=== PATIENT | female | born 1965 | race Caucasian/White ===

== ENCOUNTER 2016-09-05 14:51 | Inpatient (IN) | payer OTHER ==
--- NOTE | 2016-09-05 15:17 | PROVIDER DOCUMENTATION ---
HPI-General Adult - General Source: patient, family Unable to obtain history due to:: altered - History of Present Illness -Gen Adult Nature of Presenting Problems: 50 y/o F presented to the ER after experiencing fever of 104 as per . Also this morning he noticed that her speech is slurred so he called EMS. Patient is a poor historian and having difficulty remembering words. Her confirmed that this all happened today and that yesterday she was completely normal. Patient has a long history of cachexia and a recent history of DVT for which she is receiving a blood thinner. Patient has a PICC line in her left arm that she doesn't know what is it for, neither the . Her medication list does not include any medication that is taken through IV route. <Ayala Marrero - Last Filed: 09/05/16 18:41> - General Source: family () - History of Present Illness -Gen Adult Nature of Presenting Problems: 50 YOWF PRESENTS TO ED WITH HER ,PT'S STATES SHE WAS NORMAL AT 07 :00 THIS MORNING WHEN HE LEFT FOR WORK. PT'S STATES WHEN HE CAME HOME AT LUNCH, PT HAD A FEVER OF 104. PT WAS SEEN 1 WEEK AGO HERE AND DX WITH DVT BOTH LOWER EXTREMITIES. Location of Pain/Injury: reports: lower extremity Pain Radiation: reports: no radiation Quality of Pain: reports: aching Severity: reports: moderate Onset/Duration: reports: 1-3 hours ago Timing: reports: still present Context/Activities at Onset: reports: light activity Modifying Factors: improves with: nothing Similar Symptoms Previously?: No Recently seen or treated by another doctor?: No <Jam Castillo - Last Filed: 09/07/16 01:39> - General Chief Complaint: Fever Stated Complaint: FEVER Time Seen by Provider: 09/05/16 15:00 Allergies/Adverse Reactions: Patient Allergies Allergy/AdvReac Type Severity Reaction Status Date / Time No Known Allergies Allergy Verified 09/05/16 15:46 Home Medications: Home Medication List Medication Instructions Recorded Confirmed Last Taken Type Alprazolam [Xanax] 2 mg PO HS 01/15/16 09/05/16 08/15/16 History Esomeprazole Magnesium [Nexium] 40 mg PO BID #60 capsule. 01/16/16 09/05/16 Rx Fluconazole [Diflucan] 100 mg PO DAILY #22 tablet 01/16/16 09/05/16 08/16/16 Rx Hydrocodone Bit/Acetaminophen 1 each PO PRN PRN 02/20/16 09/05/16 Unknown History [Hydrocodon-Acetaminoph 7.5-325] Bupropion [Wellbutrin] 300 mg PO DAILY 08/16/16 09/05/16 08/16/16 History Escitalopram Oxalate [Lexapro] 20 mg PO DAILY 08/16/16 09/05/16 08/16/16 History Quetiapine Fumarate [Seroquel] 150 mg PO HS 08/16/16 09/05/16 08/15/16 History Fondaparinux [Arixtra] 7.5 mg SUBQ BID #60 inj 08/30/16 09/05/16 Unknown Rx Levothyroxine [Synthroid] 200 microgm PO ACB #60 tablet 08/31/16 09/05/16 Unknown Rx Promethazine [Phenergan] 25 mg PO Q6H PRN PRN #10 tablet 08/31/16 09/05/16 Unknown Rx Review of Systems - Adult - REVIEW OF SYSTEMS - ADULT Constitutional: reports: chills, fever Eyes: reports: no symptoms reported Ears, Nose, Mouth & Throat: reports: no symptoms reported, other (NG tube in place from last visit for nutrition) Cardiovascular: reports: no symptoms reported Respiratory: reports: no symptoms reported Gastrointestinal: reports: nausea Genitourinary: reports: no symptoms reported Musculoskeletal: reports: frequent leg cramps Neurological: reports: no symptoms reported Psychiatric: reports: no symptoms reported Endocrine: reports: no symptoms reported Hematologic/Lymphatic: reports: blood clots Allergic/Immunologic: reports: no symptoms reported <Ayala Marrero - Last Filed: 09/05/16 18:41> - REVIEW OF SYSTEMS - ADULT Constitutional: denies: chills, fever Cardiovascular: denies: chest pain, palpitations, syncope Respiratory: denies: cough, shortness of breath, wheezing Gastrointestinal: denies: abdominal pain, diarrhea, nausea, vomiting Musculoskeletal: reports: other (BILATERAL LEG PAINS). denies: back pain, neck pain Neurological: denies: dizziness/vertigo, headache/migraines, syncope <Jam Castillo - Last Filed: 09/07/16 01:39> Past History - Adult - PAST MEDICAL HISTORY-ADULT Major Childhood Illnesses: reports: denies history Cardiovascular: reports: blood clots (Lower Extremities DVT 2/2 to Factor V leidg deficiency ) Gastrointestinal: reports: obstruction Obstetrical/Gynecological: reports: denies history Genitourinary: reports: denies history Musculoskeletal: reports: denies history Neurological: reports: denies history Endocrine/Immune: reports: denies history - PRIOR SURGERIES/PROCEDURES Surgical/Procedure History: reports: gastric bypass - SOCIAL HISTORY Smoking: denies <Ayala Marrero - Last Filed: 09/05/16 18:41> - PAST MEDICAL HISTORY-ADULT Review of Records: reports: Nursing Assessment Review, Medications Reviewed Cardiovascular: reports: other (Factor V Leiden) Gastrointestinal: reports: GERD, ulcer - IMMUNIZATION STATUS Childhood Immunizations: See Nurse Assessment Flu Vaccine: See Nurse Assessment - FAMILY HISTORY Family History: reviewed, not pertinent - SOCIAL HISTORY Smoking: quit less than 1 year Substance Use: denies Alcohol Use Frequency: never Living Situation: family <Jam Castillo - Last Filed: 09/07/16 01:39> Physical Exam-General - CONSTITUTIONAL General Appearance: mild distress, cachetic, slow to respond - EYES Eyes: PERRL/EOMI - HEAD, EARS, NOSE, MOUTH & THROAT HENMT: normocephalic/atraumatic - NECK Neck: supple - RESPIRATORY Respiratory: lungs clear - CARDIOVASCULAR Cardiovascular: regular rate, rhythm - CHEST (BREASTS) Chest/Breast: deferred - GASTROINTESTINAL (ABDOMEN) Abdominal Exam: non tender, soft - GENITOURINARY Female Genitalia/Pelvic Exam: bimanual exam normal Rectal Exam: deferred - MUSCULOSKELETAL Back Exam: no CVA tenderness Extremity: calf tenderness - NEUROLOGIC Neurologic: aphasia. negative: facial droop (AOx2) <Ayala Marrero - Last Filed: 09/05/16 18:41> - CONSTITUTIONAL General Appearance: alert, mild distress - EYES Eyes: PERRL/EOMI, pink conjunctivae - HEAD, EARS, NOSE, MOUTH & THROAT HENMT: normocephalic/atraumatic, moist mucous membranes - NECK Neck: non-tender, full range of motion, supple - RESPIRATORY Respiratory: chest non-tender, lungs clear, normal breath sounds - CARDIOVASCULAR Cardiovascular: normal peripheral pulses, regular rate, rhythm - GASTROINTESTINAL (ABDOMEN) Abdominal Exam: normal bowel sounds, non tender, soft - LYMPHATIC Lymphatic: no adenopathy - MUSCULOSKELETAL Back Exam: normal inspection, no CVA tenderness, no vertebral tenderness Extremity: normal range of motion, non-tender - SKIN Integumentary: normal color, normal turgor, warm/dry - NEUROLOGIC Neurologic: grossly normal <Jam Castillo - Last Filed: 09/07/16 01:39> Progress - PLAN OF CARE/RESULTS Progress/Plan/Lab Results: Laboratory Tests 09/05/16 09/05/16 09/05/16 15:09 15:09 15:09 WBC 1.85 L RBC 3.15 L Hgb 9.6 L Hct 30.1 L MCV 95.6 MCH 30.5 MCHC 31.9 L RDW Std Deviation 16.2 H Plt Count 168 MPV 11.0 H Immature Gran % (Auto) 0.0 Neut % (Auto) 86.5 H Lymph % (Auto) 9.7 L [place] % (Auto) 1.1 L Eos % (Auto) 2.2 Baso % (Auto) 0.5 Immature Gran # (Auto) 0.00 Neut # (Auto) 1.60 Lymph # (Auto) 0.18 L [place] # (Auto) 0.02 L Eos # (Auto) 0.04 Baso # (Auto) 0.01 Segmented Neutrophils 75 Band Neutrophils 10 H Lymphocytes 15 L Polychromasia OCCASIONAL PT INR PTT (Actin FS) Sodium 133 L Potassium 3.5 Chloride 102 Carbon Dioxide 21 L Anion Gap 10 BUN 13 Creatinine 0.5 Estimated GFR/1.73 m2 > 60 BUN/Creatinine Ratio 26 Glucose 115 H Calculated Osmolality 267 Calcium 7.6 L Total Bilirubin Direct Bilirubin AST ALT Alkaline Phosphatase Total Protein Albumin Globulin Albumin/Globulin Ratio Plasma Lactate 1.6 Urine Source Urine Color Urine Turbidity Urine pH Ur Specific [place] Urine Protein Ur Glucose (Stick) Ur Ketones (Stick) Urine Blood Urine Nitrite Urine Bilirubin Urobilinogen Dipstick Urine Leukocytes Urine WBC (Auto) Urine RBC (Auto) U Epithel Cells (Auto) Urine Bacteria (Auto) Urine Opiates Screen Ur Oxycodone Screen Ur Methadone, Qual Ur Barbiturates Screen Ur Phencyclidine Scrn Ur Amphetamines Screen U Benzodiazepines Scrn Urine Cocaine Screen U Cannabinoids Screen 09/05/16 09/05/16 09/05/16 15:09 15:09 15:09 WBC RBC Hgb Hct MCV MCH MCHC RDW Std Deviation Plt Count MPV Immature Gran % (Auto) Neut % (Auto) Lymph % (Auto) [place] % (Auto) Eos % (Auto) Baso % (Auto) Immature Gran # (Auto) Neut # (Auto) Lymph # (Auto) [place] # (Auto) Eos # (Auto) Baso # (Auto) Segmented Neutrophils Band Neutrophils Lymphocytes Polychromasia PT 13.1 H INR 1.23 PTT (Actin FS) 30.6 Sodium Potassium Chloride Carbon Dioxide Anion Gap BUN Creatinine Estimated GFR/1.73 m2 BUN/Creatinine Ratio Glucose Calculated Osmolality Calcium Total Bilirubin 0.61 Direct Bilirubin 0.40 H AST 46 H ALT 26 Alkaline Phosphatase 85 Total Protein 4.6 L Albumin 2.3 L Globulin 2.3 Albumin/Globulin Ratio 1.0 Plasma Lactate Urine Source Urine Color Urine Turbidity Urine pH Ur Specific [place] Urine Protein Ur Glucose (Stick) Ur Ketones (Stick) Urine Blood Urine Nitrite Urine Bilirubin Urobilinogen Dipstick Urine Leukocytes Urine WBC (Auto) Urine RBC (Auto) U Epithel Cells (Auto) Urine Bacteria (Auto) Urine Opiates Screen Ur Oxycodone Screen Ur Methadone, Qual Ur Barbiturates Screen Ur Phencyclidine Scrn Ur Amphetamines Screen U Benzodiazepines Scrn Urine Cocaine Screen U Cannabinoids Screen 09/05/16 09/05/16 15:25 15:25 WBC RBC Hgb Hct MCV MCH MCHC RDW Std Deviation Plt Count MPV Immature Gran % (Auto) Neut % (Auto) Lymph % (Auto) [place] % (Auto) Eos % (Auto) Baso % (Auto) Immature Gran # (Auto) Neut # (Auto) Lymph # (Auto) [place] # (Auto) Eos # (Auto) Baso # (Auto) Segmented Neutrophils Band Neutrophils Lymphocytes Polychromasia PT INR PTT (Actin FS) Sodium Potassium Chloride Carbon Dioxide Anion Gap BUN Creatinine Estimated GFR/1.73 m2 BUN/Creatinine Ratio Glucose Calculated Osmolality Calcium Total Bilirubin Direct Bilirubin AST ALT Alkaline Phosphatase Total Protein Albumin Globulin Albumin/Globulin Ratio Plasma Lactate Urine Source CLEAN CATCH Urine Color YELLOW Urine Turbidity CLEAR Urine pH 6.5 Ur Specific [place] 1.011 Urine Protein NEGATIVE Ur Glucose (Stick) NEGATIVE Ur Ketones (Stick) NEGATIVE Urine Blood NEGATIVE Urine Nitrite NEGATIVE Urine Bilirubin NEGATIVE Urobilinogen Dipstick NORMAL Urine Leukocytes NEGATIVE Urine WBC (Auto) <10 Urine RBC (Auto) <10 U Epithel Cells (Auto) <10 Urine Bacteria (Auto) NEGATIVE Urine Opiates Screen NONE DETECTED Ur Oxycodone Screen NONE DETECTED Ur Methadone, Qual NONE DETECTED Ur Barbiturates Screen NONE DETECTED Ur Phencyclidine Scrn NONE DETECTED Ur Amphetamines Screen NONE DETECTED U Benzodiazepines Scrn PRESUMPTIVE POSITIVE A Urine Cocaine Screen NONE DETECTED U Cannabinoids Screen NONE DETECTED Orders Category Date Time Status CHEST-2 VIEWS [RAD] Stat Exams 09/05/16 15:31 Completed HEAD W/O CONTRAST [CT] Stat Exams 09/05/16 15:05 Completed BASIC METABOLIC PANEL [CHEM] Stat Lab 09/05/16 15:09 Completed BLOOD CULTURE [BLDCUL] Stat Lab 09/05/16 16:31 Results CBC WITH DIFF [HEME] Stat Lab 09/05/16 15:09 Completed INFLUENZA SCREEN A/B Stat Lab 09/05/16 15:18 Completed LACTATE, PLASMA [CHEM] Stat Lab 09/05/16 15:09 Completed LFT [HEPATIC FUNCTION] [CHEM] Stat Lab 09/05/16 15:09 Completed PROTIME WITH INR [COAG] Stat Lab 09/05/16 15:09 Completed PTT [COAG] Stat Lab 09/05/16 15:09 Completed UA [URINALYSIS] [URINALYSIS] Stat Lab 09/05/16 15:25 Completed URINE DRUG SCREEN Stat Lab 09/05/16 15:25 Completed 0.9% Sodium Chloride Inj [Ns] 1,000 ml Med 09/05/16 15:55 Discontinued IV 999 mls/hr Meropenem [Merrem] 1 gm Med 09/05/16 16:57 Discontinued 0.9% Sodium Chloride Inj [Ns] 50 ml IV NOW Vancomycin 1 gm/Ns 250 ml Med 09/05/16 16:57 Discontinued IV NOW Vital Signs - 24 hr 09/05/16 09/05/16 09/05/16 14:52 15:02 15:20 Temperature 97.7 F Pulse Rate 126 H 119 H 115 H Respiratory 20 21 18 Rate Blood Pressure 81/56 105/67 91/61 O2 Sat by Pulse 98 95 97 Oximetry 09/05/16 09/05/16 09/05/16 16:20 17:30 18:23 Temperature 101.1 F H Pulse Rate 115 H 116 H 121 H Respiratory 20 22 20 Rate Blood Pressure 91/58 96/63 89/61 O2 Sat by Pulse 99 98 99 Oximetry - XRAY 1 XRAY: Bilateral XRAY Study: Chest (possible pneumonia) - CT/MRI 1 CT Study: Head (normal) - CONSULTS/PCP/HOSPITALIST Notification #1 *Consult/PCP/Hospitalist*: Dr. Reinoso Time Discussed: 18:39 <Ayala Marrero - Last Filed: 09/05/16 18:41> - CT/MRI 1 CT Study: Head CT Results: NEGATIVE <Jam Castillo - Last Filed: 09/07/16 01:39> Departure - Departure Time of Disposition Order: 18:39 <Ayala Marrero - Last Filed: 09/05/16 18:41> - Departure Time of Disposition Order: 15:44 Certified Medical Emergency: Emergent <Jam Castillo - Last Filed: 09/07/16 01:39> - Departure DIAGNOSIS: TIA (transient ischemic attack) Qualifiers: Transient cerebral ischemia type: unspecified Qualified Code(s): G45.9 - Transient cerebral ischemic attack, unspecified Sepsis Qualifiers: Sepsis type: sepsis due to unspecified organism Qualified Code(s): A41.9 - Sepsis, unspecified organism Disposition: ADMITTED INPATIENT 09 Condition: Critical Attestation - Scribe Verification/Attestation Scribe:: Jam Castillo Acting as Scribe for:: Clara Maynard Scribe documention review:: This chart was documented by a scribe and accurately reflects the service the provider performed and the decisions made by the provider. <Jam Castillo - Last Filed: 09/07/16 01:39> Physician Attestation - Physician Attestation I, the provider, attest to the following statement:: Ayala Marrero Physician documentation Attestation:: This documentation recorded by the scribe accurately reflects the service I personally performed and the decisions made by me. <Ayala Marrero - Last Filed: 09/05/16 18:41>
--- NOTE | 2016-09-05 15:29 | Diag Imaging Result Document ---
PROCEDURE NAME: HEAD W/O CONTRAST - 09/05/[address]: COMPARISON: None. FINDINGS: The ventricles and sulci are normal in size and contour. There is no mass, hemorrhage, or evidence of acute ischemia. The bony calvaria is intact. The visualized paranasal sinuses and mastoid air cells are clear. IMPRESSION: Negative head CT.
[2016-09-05 15:53] LABS: URINE MICRO REVIEW NEEDED? NO; URINE SOURCE CLEAN CATCH
[2016-09-05 15:54] LABS: AGAP 10; BUN 13 mg/dL (8-22); CALCIUM 7.6 mg/dL (8.8-10.2); CHLORIDE 102 mmol/L (98-107); COSMO 267; POTASSIUM 3.5 mmol/L (3.5-5.1); SODIUM 133 mmol/L (136-145); TCO2 21 mmol/L (25-35)
[2016-09-05] MEDS ORDERED: NS 1,000 ML IV ONE ×3 (15:55→21:47)
[2016-09-05 16:03] LABS: BILIRUBIN URINE NEGATIVE (NEGATIVE); BLOOD URINE NEGATIVE (NEGATIVE); COLOR YELLOW; GLUCOSE URINE NEGATIVE (NEGATIVE); LEUKOCYTES URINE NEGATIVE (NEGATIVE); NITRITE URINE NEGATIVE (NEGATIVE); PH URINE 6.5; PROTEIN URINE NEGATIVE (NEGATIVE); SP GRAVITY URINE 1.011; TURBIDITY URINE CLEAR (CLEAR); UROBILINOGEN URINE NORMAL (NORMAL)
[2016-09-05 16:04] LABS: UR EPITHELIAL CELLS <10 /HPF (<10); URINE BACTERIA NEGATIVE /HPF; URINE RBC <10 /HPF (<10); URINE WBC <10 /HPF (<10)
[2016-09-05 16:07] LABS: BASO% 0.5 % (0.0-0.8); EOS# 0.04 X1000 (0.0-0.7); EOS% 2.2 % (0.0-10.0); HEMATOCRIT 30.1 % (37.0-47.0); HEMOGLOBIN 9.6 g/dL (12.0-16.0); LYMPH# 0.18 X1000 (1.2-3.4); LYMPH% 9.7 % (20.5-51.1); MANUAL DIFF NEEDED? YES; MCH 30.5 PG (27-31); MCHC 31.9 g/dL (33-37); MCV 95.6 FL (81-99); MONO# 0.02 X1000 (0.11-0.59); MONO% 1.1 % (1.7-9.3); NEUT% 86.5 % (42.2-75.2); PLT 168 X1000 (130-400); RBC 3.15 XMIL (4.2-5.4)
[2016-09-05 16:12] LABS: INR 1.23; PROTIME 13.1 Seconds (9.2-11.7)
[2016-09-05 16:18] LABS: UR AMPHETAMINES QUAL NONE DETECTED (NONE DETECT); UR BARBITUATES QUAL NONE DETECTED (NONE DETECT); UR BENZODIAZEPIN QUAL PRESUMPTIVE POSITIVE (NONE DETECT); UR CANNABINOIDS QUAL NONE DETECTED (NONE DETECT); UR COCAINE QUAL NONE DETECTED (NONE DETECT); UR METHADONE QUAL NONE DETECTED (NONE DETECT); UR OPIATES QUAL NONE DETECTED (NONE DETECT); UR OXYCODONE QUAL NONE DETECTED (NONE DETECT); UR PCP QUAL NONE DETECTED (NONE DETECT)
[2016-09-05 16:29] LABS: BANDS 10 % (0-1); LYMPHS 15 % (21-51)
[2016-09-05 16:30] LABS: POLYCHROM OCCASIONAL
--- NOTE | 2016-09-05 16:30 | Diag Imaging Result Document ---
PROCEDURE NAME: CHEST-2 VIEWS - 09/05/2016 CHEST X-RAY TWO-VIEWS: COMPARISON: 08/21/2016. FINDINGS: There is a stable feeding tube in the left upper quadrant off the bottom of the film. There is a left PICC line in good position with the catheter tip at the cavoatrial junction. There are some ill-defined bilateral lower lobe infiltrates similar to prior. Trace pleural effusions have improved. Heart size is normal. IMPRESSION: 1. Improved pleural effusions. 2. Small residual lower lobe infiltrates, nonspecific.
[2016-09-05 16:34] LABS: ALBUMIN 2.3 g/dL (3.5-5.0); DIRECT BILIRUBIN 0.4 mg/dL (0.00-0.20); TOTAL BILIRUBIN 0.61 mg/dL (0.20-1.00); TOTAL PROTEIN 4.6 g/dL (6.3-8.3)
[2016-09-05] MEDS ORDERED: VANCOMYCIN 1 GM/NS 250 ML IV ONE (16:57)
[2016-09-05] MEDS ORDERED: MERREM 1 GM in NS 50 ML IV ONE (16:57)
[2016-09-05] MEDS ORDERED: NS 500 ML IV ONE (19:27)
[2016-09-05] MEDS ORDERED: NS 500 ML ONE (19:30)
[2016-09-05] MEDS ORDERED: VANCOMYCIN IV PER PHARMACY MISC SCH (20:10)
[2016-09-05] MEDS: TYLENOL PO PRN (20:20)
[2016-09-05] MEDS: NS 1,000 ML IV SCH (20:48)
[2016-09-05] MEDS: DIFLUCAN 200 MG/NS 100 ML IV SCH (20:50)
[2016-09-05] MEDS: SODIUM CHLORIDE 0.9% INJ SCH (20:50)
[2016-09-05] MEDS: PROTONIX IV SCH (20:50)
--- NOTE | 2016-09-05 20:51 | HISTORY AND PHYSICAL ---
PRIMARY CARE PROVIDER: Dr. Lord. PRIMARY DETACKER: Digna Renteria M.D. CHIEF COMPLAINT: Fever and chills with stroke-like symptoms, confusion. HISTORY OF PRESENT ILLNESS: Ms. Rachid Alexander is a 50-year-old female with a past medical history of gastric bypass, severe protein calorie malnutrition, Factor V Leiden deficiency, recurrent DVTs and asthma who apparently was last seen normal about 06:30 by her . He went to work and called her around 12 and she did not seem to be having a normal conversation. He came home and found that she was confused, lethargic, had a fever at home of 104 prior to taking Tylenol. He states that she had slurred speech with difficulty getting words out. Generalized weakness. Body aches. On admit her NIH stroke scale was a score of 2. Head CT was negative for any acute findings. She has been on Arixtra for her DVT and there are no signs of bleeding on this head CT. Apparently she saw her primary care physician yesterday that did not make any change in her medications. It was just a routine visit for complaints of headache and feeling weak. HOSPITAL COURSE: She was afebrile on admit. Her temp was normal at 97.7 because she had taken Tylenol prior to arrival. It's now back up to 101.1 she has been tachycardic 110s-120s. Blood pressure has been below anywhere from 80s to 90s systolically. She has no complaints of shortness of breath. Her O2 saturation is good. Her white blood cell count on laboratory findings was 1.85. Kidney function looks good. It looks like she had a past record of low white count. It looks like she has been running anywhere from 1.9-2.5 this year. We will consult Hematology as she has not been seeing anybody for Hematology. Neurologically she is starting to come back around. She is able to tell me her name and where she is at. She is having a really hard time finding words at times. Given the fact that she still appears to be septic we are going to send her to ICU for at least 1 tonight and give her aggressive IV fluid hydration with antibiotic therapy. On her chest x-ray they are still showing some lower lobe infiltrates but she still has pneumonia from her last admit. Lactate is normal at 1.6 and her urinalysis is negative. So we will continue to treat her for pneumonia with sepsis. She also has severe protein calorie malnutrition that Dr. Renteria has been following her for. Jay has a Dobbhoff tube in that she has been receiving tube feeds through and we will reconsult Dr. Renteria and Nutrition consult for recommendations. PAST MEDICAL HISTORY: Asthma, severe protein calorie malnutrition, anxiety, Factor V Leiden deficiency, recurrent DVTs with recent one in the left lower extremity, hypothyroidism, gastritis, external and internal hemorrhoids, morbid obesity with multiple bariatric surgeries is as well as stricture repair. SURGICAL HISTORY: Gastric bypass with revision, stricture removal, left ACL x3, cholecystectomy, appendectomy, Cathi filter placement, and left upper arm PICC line placement. SOCIAL HISTORY: and lives with her . Has a remote history of tobacco abuse. Denies alcohol or illicit drug use. Urine drug screen was positive for benzodiazepines. FAMILY HISTORY: Follow has peripheral vascular disease and diabetes. Mother with lung cancer with metastasis to the brain. REVIEW OF SYSTEMS: A 14 review of systems were complete and all were negative except for those mentioned in above HPI. ALLERGIES: No known drug allergies. HOME MEDICATIONS: Xanax 2 mg p.o. nightly; hydrocodone/acetaminophen 7.5, 1 tab p.o. p.r.n.; Lexapro 20 mg p.o. daily; Seroquel 150 mg p.o. nightly; Wellbutrin 300 mg p.o. daily; Diflucan 100 mg p.o. daily; Nexium 40 mg p.o. twice daily; Phenergan 25 mg p.o. q.6 hours p.r.n.; Arixtra 7.5 mg subcutaneous twice daily; Synthroid 200 mcg p.o. before breakfast. LABORATORY DATA: White blood cells 1.85, hemoglobin 9, hematocrit 30, platelet count 168,000. INR 1.23, PTT 30.6, sodium 133, potassium 3.5, BUN 13, creatinine 0.5, glucose 115, calcium 7.6, total bilirubin 0.61, AST 46, ALT 26, total protein 4.6, albumin 2.3. Urinalysis negative. Urine drug screen positive for benzodiazepines. IMAGING: Chest x-ray: Improved pleural effusion with small residual lower lobe infiltrate. Head CT: Negative for any acute findings. PHYSICAL EXAMINATION: VITAL SIGNS: Temperature 101.1 degrees, heart rate 121, respiratory rate 20, blood pressure 89/61, O2 saturation 99% on room air GENERAL: Ms. Rachid Alexander is a 50-year-old female who is in no acute distress. She is very confused with some conversation and has a hard time trying to find a word. She is hypotensive with tachycardia and febrile. HEENT: Atraumatic, normocephalic. Pupils are equal, reactive but sluggish. Extraocular movements are intact. Mucous membranes are dry. NECK: No JVD or carotid bruits noted. CARDIOVASCULAR: S1, S2. Tachycardic rate and rhythm. No rubs, gallops, murmurs. PULMONARY: Clear to auscultation. Bilateral breath sounds. Decreased in the bases. No accessory muscle use or work of breathing noted. Currently on room air. GASTROINTESTINAL: Soft, nontender, nondistended. Positive bowel sounds x4. Currently with a Dobbhoff tube in place that she receives nutrition through. EXTREMITIES: No edema noted. +2 dorsalis and radial pulses. NEUROLOGIC: She is oriented to name and place only. She had a hard time finding words. She was equal in strength bilaterally. Face was symmetric. SKIN: Warm, dry, intact. ASSESSMENT AND PLAN: 1. Stroke-like symptoms. Head CT was negative. She does have a history of Factor V Leiden deficiency. Neurologically she is improving. I would recommend MRI of the brain. She apparently has metal clips from her history of gastric bypass and a Leblanc filter so we will need to check with MRI if she is compatible. Frequent neurology checks. Neurology has been consulted. Check swallow. Physical therapy. 2. Sepsis secondary to pneumonia. She is severely leukopenic, white blood cells 1.8. Heart rates in the 120s. Blood pressures 80s to low 90s. She is febrile. Lactate is normal. We will consult Hematology to follow up with her leukopenia. Start her on vancomycin and meropenem. Send her to ICU for 1 night. Blood cultures have been obtained. Urinalysis is negative. Influenza screening is negative. 3. Severe protein calorie malnutrition. She has a Dobbhoff tube. Dr. Renteria has been reconsulted to follow along with her poor nutritional status. 4. Factor V Leiden deficiency with recurrent DVTs. Currently is on Arixtra. Continue. 5. Hypothyroidism. Continue Synthroid. Recheck TSH. 6. Deep venous thrombosis prophylaxis. On Arixtra. 7. Gastrointestinal prophylaxis. Proton pump inhibitor. Dictated by RUEL Cortez for Kanu Hallman MD
[2016-09-05] MEDS ORDERED: NEO-SYNEPHRINE 50 MG in NS 250 ML IV SCH (22:00)
[2016-09-05] MEDS: XOPENEX NEB INH SCH (22:00)
[2016-09-05] MEDS: ATROVENT NEB INH SCH (22:00)
[2016-09-05] MEDS ORDERED: VANCOMYCIN 1,600 MG in NS 250 ML IV ONE (23:00)
[2016-09-05] MEDS ORDERED: VANCOMYCIN 500 MG/NS 100 ML IV ONE (23:00)
[2016-09-06] MEDS: MERREM 1 GM in NS 50 ML IV SCH ×3 (00:03→17:33)
[2016-09-06] MEDS: NS 1,000 ML IV SCH ×3 (03:35→17:34)
[2016-09-06] MEDS: ATROVENT NEB INH SCH ×4 (04:10→20:02)
[2016-09-06] MEDS: XOPENEX NEB INH SCH ×4 (04:10→20:03)
[2016-09-06 06:00] LABS: MANUAL DIFF NEEDED? NO
[2016-09-06 06:19] LABS: BASO% 0.2 % (0.0-0.8); EOS# 0.02 X1000 (0.0-0.7); EOS% 0.4 % (0.0-10.0); HEMATOCRIT 27.6 % (37.0-47.0); HEMOGLOBIN 8.8 g/dL (12.0-16.0); LYMPH# 0.91 X1000 (1.2-3.4); LYMPH% 18.5 % (20.5-51.1); MCH 30.7 PG (27-31); MCHC 31.9 g/dL (33-37); MCV 96.2 FL (81-99); MONO# 0.35 X1000 (0.11-0.59); MONO% 7.1 % (1.7-9.3); NEUT% 73.8 % (42.2-75.2); PLT 147 X1000 (130-400); RBC 2.87 XMIL (4.2-5.4)
[2016-09-06 06:58] LABS: AGAP 9; ALBUMIN 1.8 g/dL (3.5-5.0); ALKALINE PHOSPHATASE 52 U/L (32-104); BUN 11 mg/dL (8-22); CALCIUM 6.5 mg/dL (8.8-10.2); CHLORIDE 113 mmol/L (98-107); COSMO 283; GOT 38 U/L (10-30); GPT 23 U/L (10-36); POTASSIUM 3.3 mmol/L (3.5-5.1); SODIUM 143 mmol/L (136-145); TCO2 21 mmol/L (25-35); TOTAL BILIRUBIN 0.42 mg/dL (0.20-1.00); TOTAL PROTEIN 4.1 g/dL (6.3-8.3)
[2016-09-06] MEDS ORDERED: SYNTHROID PO SCH (07:00)
[2016-09-06] MEDS ORDERED: CALCIUM GLUCONATE 2 GM in NS 100 ML IV ONE (07:28)
[2016-09-06] MEDS ORDERED: NEO-SYNEPHRINE 50 MG in NS 250 ML IV SCH (07:37)
[2016-09-06] MEDS: PROTONIX IV SCH ×2 (08:13→20:13)
[2016-09-06] MEDS: SODIUM CHLORIDE 0.9% INJ SCH ×3 (08:13→20:13)
[2016-09-06] MEDS ORDERED: ARIXTRA SUBQ SCH (09:00)
[2016-09-06] MEDS: SYNTHROID IV SCH (09:36)
[2016-09-06] MEDS: TYLENOL PR ONE ×2 (09:37→09:42)
[2016-09-06] MEDS: TYLENOL PO PRN (09:48)
[2016-09-06] MEDS ORDERED: VANCOMYCIN 1,200 MG in NS 250 ML IV SCH (11:00)
[2016-09-06] MEDS: MORPHINE IV PRN ×3 (11:14→22:03)
[2016-09-06 11:39] LABS: MAGNESIUM 1.6 mg/dL (1.5-2.7); PREALBUMIN 4.5 mg/dL (20-40)
--- NOTE | 2016-09-06 12:18 | PROGRESS NOTE ---
DATE: 09/06/2016 SUBJECTIVE: Patient is feeling fine. Alert and oriented x3. Denies feeling feverish sometimes. No headache, no nausea. OBJECTIVE: Vital Signs: Temperature 98.2 degrees, heart rate 78, respiratory rate 18, blood pressure 111/78 and O2 saturation 98% on room air. General Examination: This is a chronically ill-looking and frail, 50-year-old female, lying in bed in no acute distress. HEENT: Head is normocephalic, atraumatic. Anicteric sclerae and pale conjunctivae. Mucous membranes dry. Jejunal tube feeding in place. Neck: Supple. No JVD noted. No carotid bruits. No lymphadenopathy. No thyromegaly. Cardiovascular Exam: S1, S2 heard. No murmurs, clicks gallops or rubs. Regular rate and rhythm. Respiratory Exam: Clear bilaterally to auscultation. No work of breathing or using accessory muscles. Abdomen: Soft, nontender to palpation. Nondistended. Bowel sounds present. No organomegaly. Extremities: 1+ pitting edema noted in both legs. Peripheral pulses present in both legs. Neurological Exam: Patient is alert and oriented x3. Able to move 4 extremities. Cranial nerves 2-12 grossly normal. LABORATORY DATA: White cell count 4.94, hemoglobin 8.8, hematocrit 27.6, platelets 147. BMP remarkable for calcium 6.5, potassium 3.3 and albumin 1.8. ASSESSMENT AND PLAN: 1. Sepsis secondary to pneumonia. The patient was admitted to the hospital yesterday for fever, altered mental status and apparently a stroke was suspected. Chest x-ray shows a small residual lower lobe infiltrate. Considering her high temperature, she was started on broad- spectrum antibiotics. In this case, vancomycin and meropenem. Mental status is back to normal. We will continue with same management. 2. She was started on blood pressure because the blood pressure at presentation was 70; now she is most of the time in the 90s to 100s, so considering that this is the blood pressure that she usually runs, we have to stop neosynephrine today. 3. Severe protein calorie malnutrition. This patient has a Dobbhoff tube placed. Dr. Renteria has been consulted, and we will leave to her the decision to start nutrition trial by tube, total parenteral nutrition, or any other kind of nutrition. Apparently because of suspicion for stroke, swallow evaluation has been ordered. If the swallow evaluation is fine, I think we need to start some diet on this patient. 4. Factor V Leiden deficiency with recurrent deep vein thrombosis. Currently patient is on Arixtra and will continue with the same management. 5. Hypothyroidism. Patient receiving Synthroid. Thyroid stimulating hormone was rechecked here and was normal. MTDD
--- NOTE | 2016-09-06 14:43 | CONSULTATION ---
DATE OF CONSULTATION: 09/06/2016 CONCLUSION: The patient is admitted to the hospital with an altered mental status. I think this is due to the fact that she was septic; specifically, she has a gram-negative artur bacteremia. She also on chest x-ray has bibasilar infiltrates with effusions. Therefore, I think most likely she has a gram-negative artur pneumonia, which became bacteremic. I am concerned that the patient may have an immunoglobulin deficiency as well. RECOMMENDATIONS: I agree with putting the patient on meropenem. I have discontinued Levaquin and vancomycin pending culture results. I have ordered immunoglobulin levels. DISCUSSION: The patient tells me that she was admitted to the hospital with an altered mental status. She became hypotensive. She is up in the intensive care unit. She was placed on vancomycin and meropenem, as well as pressor support. She has not had to be intubated. Two blood cultures are growing gram-negative rods, the identity of which is pending. The patient's CBC shows a white count of 4930, hemoglobin of 8.8, and platelet count of a 147,000. Creatinine is 0.3. CT scan of the head showed no acute disease. Chest x-ray showed bibasilar infiltrates and effusions. 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 OBSTETRICAL/GYNECOLOGICAL HISTORY: The patient has never been . PAST MEDICAL HISTORY/REVIEW OF SYSTEMS: Eyes and Ears: The patient states she has a decrease in her vision, but her hearing is okay. Neck: No stiffness. Respiratory: The patient is complaining of dyspnea, but she is not coughing. Cardiovascular: No chest pain or palpitations. Gastrointestinal: The patient has had bypass surgery and now has a tube down from the nose to the jejunum for feeding to her. The patient states she has been having nausea and vomiting in the past week. As mentioned above, the patient has had some vomiting. She is not having any diarrhea. She does have a nasal jejunal tube in place. Genitourinary: No flank pain or dysuria. Neurologic: No headaches or motor or sensory loss. Hematologic: The patient has factor V deficiency and as a result of this clots easily. It should be noted that the patient does have blood clots in both legs. Endocrine: The patient does have a thyroid deficiency, but she is not a diabetic PREVIOUS HOSPITALIZATIONS AND OPERATIONS: She has had ACL surgery on her knee done more than 1 time. She has had 2 gastric bypasses. She has had a cholecystectomy and a hernia repair. MEDICAL DISEASES: Positive for obesity. The patient has had 2 gastric bypass procedures. The patient also has hypothyroidism and peptic ulcer disease and factor V deficiency, which has resulted in the patient having deep venous thromboses in the legs. INFECTIOUS DISEASE HISTORY: Positive for UTI. The patient tells me that she has a history of having extensive yeast in her GI tract, for which she is on long-term fluconazole. FAMILY HISTORY: Positive for peripheral vascular disease, myocardial infarction, and cancer. SOCIAL HISTORY: The patient lives in [place]. She is . She has dogs for a pet. ALLERGIES: The patient does not have any drug allergies. HOME MEDICATIONS: Her home medications include the following: Seroquel, Phenergan, Synthroid, hydrocodone, Arixtra, fluconazole, Nexium, Lexapro, Wellbutrin, and Xanax. PHYSICAL EXAMINATION: Vital Signs: The patient's temperature is 98.2 degrees, pulse 78, respirations 18, blood pressure 111/78. General: This is a chronically ill-appearing elderly female. She is in no acute distress at this time. Head, Eyes, Ears, Nose, and Throat: The patient has a nasal jejunal tube in place. No mucosal lesions were noted in the mouth. Neck: No meningismus. Thorax: No increased AP diameter. Lungs: Clear to auscultation. Cardiovascular: The patient's heart rate was regular. I did not hear any murmurs. Abdomen: Soft and nontender. Neurologic: The patient. Neurologic: The patient is awake. She moves both sides. There is no tremor. The patient's sensory exam was normal. Extremities: The patient has a PICC in place. Thank you for the consultation.
[2016-09-06] MEDS ORDERED: CHLORASEPTIC SPRAY MT PRN (14:49)
[2016-09-06] MEDS ORDERED: CALMOSEPTINE OINTMENT TOP PRN (15:07)
--- NOTE | 2016-09-06 15:54 | CONSULTATION ---
DATE OF CONSULTATION: 09/06/2016 HISTORY OF PRESENT ILLNESS: Ms. Aziza Alexander is a young woman with question of recent altered mental state. History from the patient is that she had felt ill for a few days. She had some hard shaking chills. She remembers telephone conversation with her , and she remembers coming home and telling her preacher was present for a visit. She does not remember visiting preacher. She next remembers being in the hospital. History from attentive is that she had hard shaking chills, and he came home to check on her. She had trouble getting her words out. There was never a period of unconsciousness, altered awareness, unresponsiveness. She seems completely recovered today. She has had headache for a few days. The headache now is mostly in the back of her head, throbbing, moderately intense. There is no history of head injury. She has never had diagnosed stroke, seizure , other neurologic event. Lab showed WBC count less than 2000, calcium initially 7.6 and then 6.5. Urine drug screen was positive for benzodiazepines and negative for opiates. This is consistent with her report that she takes alprazolam every night regularly, and she has prescription for hydrocodone to use p.r.n. She has not used that in over a week, and she does not have any hydrocodone pills at home by her report. Noncontrast CT of the head was reported unremarkable. There is past history of gastric bypass followed by weight loss. She has history of DVTs. She has asthma. reports oral temperature 104 degrees at home before admission. Highest temperature recorded on the computer record here was 101.8. Caffeine intake is variable; usually 1 caffeinated soft drink per week, by her report. PHYSICAL EXAMINATION: Neurologic: On exam now, she is awake, alert, attentive , appropriate, cheerful, and oriented. Speech is not dysarthric. Language function is intact. Head and neck are unremarkable. There is no meningismus. She has full visual garcia. Extraocular movements full. Facial motility is symmetric. Gag is intact. Tongue is midline. She can hear. Shoulder shrug is equal. Strength is good in the arms and legs. She did well on finger- to-nose testing. Sensation is intact on brief testing over the limbs. I did not test her gait. Reflexes are 2+ at the right ankle, 1+ at the left ankle with poor positioning, 2+ at the knees. IMPRESSION: Transient inability to communicate. No clear history of altered awareness or unconsciousness. I think this was related to her fever and medical illness. I do not see evidence of primary central nervous system problem. For headache, she can try caffeine and acetaminophen. If that is not adequate, we can give her the hydrocodone/ acetaminophen which has helped her in the past. I do not have any urgent suggestion now. If she deteriorates neurologically, we might consider repeat brain imaging, electroencephalogram, lumbar puncture. Thanks for asking me to see Ms. Aziza Alexander. MTDD
[2016-09-06] MEDS ORDERED: PHENERGAN ONE (18:22)
[2016-09-06] MEDS: PHENERGAN IV PRN ×2 (18:24→22:04)
[2016-09-06] MEDS: DIFLUCAN 200 MG/NS 100 ML IV SCH (19:40)
[2016-09-06] MEDS: SODIUM CHLORIDE 0.9% INJ PRN (22:04)
[2016-09-07] MEDS: NS 1,000 ML IV SCH ×2 (02:14→10:08)
[2016-09-07] MEDS: MORPHINE IV PRN ×2 (02:22→08:02)
[2016-09-07] MEDS: PHENERGAN IV PRN ×4 (02:22→20:16)
[2016-09-07] MEDS: SODIUM CHLORIDE 0.9% INJ PRN ×2 (02:23→20:16)
[2016-09-07] MEDS: MERREM 1 GM in NS 50 ML IV SCH ×3 (02:29→16:12)
[2016-09-07] MEDS: ATROVENT NEB INH SCH ×3 (03:28→16:07)
[2016-09-07] MEDS: XOPENEX NEB INH SCH ×3 (03:28→16:07)
[2016-09-07] MEDS: PROTONIX IV SCH ×2 (08:01→20:14)
[2016-09-07] MEDS: ARIXTRA SUBQ SCH (08:01)
[2016-09-07] MEDS: SODIUM CHLORIDE 0.9% INJ SCH ×3 (08:01→20:17)
[2016-09-07] MEDS: SYNTHROID IV SCH (08:02)
--- NOTE | 2016-09-07 08:20 | Diag Imaging Result Document ---
PROCEDURE NAME: PAULY ABDOMEN - 09/07/2016 SINGLE SUPINE RADIOGRAPH OF THE ABDOMEN AND PELVIS: COMPARISON: 08/22/2016. FINDINGS: A nasojejunal tube is identified. The tip projects over the right upper quadrant and is assumed to be in the proximal jejunum. Otherwise, there are nonspecific gas patterns. There is no definite obstructive pattern. There is no definite large volume of free abdominal gas. IMPRESSION: Nonspecific abdomen.
[2016-09-07 09:08] LABS: MANUAL DIFF NEEDED? NO
[2016-09-07 09:20] LABS: BASO% 0.4 % (0.0-0.8); EOS# 0.16 X1000 (0.0-0.7); EOS% 5.8 % (0.0-10.0); HEMATOCRIT 24.5 % (37.0-47.0); HEMOGLOBIN 7.6 g/dL (12.0-16.0); LYMPH# 0.81 X1000 (1.2-3.4); LYMPH% 29.3 % (20.5-51.1); MCH 30.3 PG (27-31); MCV 97.6 FL (81-99); MONO# 0.22 X1000 (0.11-0.59); MPV 11.4 FL (7.4-10.4); NEUT% 56.5 % (42.2-75.2); PLT 145 X1000 (130-400); RBC 2.51 XMIL (4.2-5.4)
[2016-09-07] MEDS ORDERED: OFIRMEV 1000 MG/ISOTONIC SOLN 100 ML IV PRN (09:27)
[2016-09-07] MEDS ORDERED: CALCIUM GLUCONATE 2 GM in NS 100 ML IV ONE (09:37)
[2016-09-07 09:38] LABS: AGAP 9; BUN 10 mg/dL (8-22); CHLORIDE 113 mmol/L (98-107); COSMO 282; POTASSIUM 3.1 mmol/L (3.5-5.1); SODIUM 142 mmol/L (136-145); TCO2 20 mmol/L (25-35)
[2016-09-07] MEDS: OSCAL 500 + D PO SCH ×3 (10:08→16:12)
[2016-09-07] MEDS: DEMEROL IV PRN ×3 (11:11→20:15)
--- NOTE | 2016-09-07 11:46 | CONSULTATION ---
DATE OF CONSULTATION: 09/05/2016 REFERRING PHYSICIAN: Ahmet Reinoso MD. PRIMARY CARE PHYSICIAN: Kenny Clement MD INDICATION FOR CONSULTATION: 1. Dysphagia. 2. Multiple vitamin deficiencies. 3. Chronic abdominal pain. 4. Constipation. HISTORY OF PRESENT ILLNESS: Patient is a 50-year-old white female who was recently admitted for evaluation of a new DVT. She has a history of severe malnutrition post Tien-en-Y gastric bypass. It was subsequently modified to a CHRIS procedure followed by transition to a duodenal switch. Her postop course has been complicated by a gastric stricture that was resected September 2015. Since that time she has had ongoing weight loss, multiple nutrient deficiencies and failure to thrive. Last admission on EGD she was found to have a large gastrojejunal ulcer. In comparison to December, this time there was no visible vessel. We were able to successfully place a nasojejunal feeding tube and begin enteral nutrition. Her course was challenged by initial intolerance to tube feedings. She subsequently was able to tolerate Vital AF at a continuous rate overnight. In addition, she had a PICC line placed because she has multiple nutrient deficiencies including the following. a. Vitamin A deficiency with a vitamin A level 5.5. b. Vitamin B6 deficiency with a level of 3. c. Vitamin C deficiency with a level of 0.4 (please note that level was 0.3 as an outpatient). d. Vitamin D 25 hydroxy with a level of 8.5. e. 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 f. Folate deficiency with a level of 5.0. g. Copper deficiency with a level of 0.41. h. A selenium deficiency with a level of 58 . i. Zinc deficiency with a level of 0.48. Today her states he called from work to check on her and found her to be confused. At home and again in the emergency room she was found to have a temperature of 104 degrees. In addition she was lethargic with expressive aphasia. She underwent an emergent head CT which was negative. She states that she has been compliant with her Arixtra for her new DVT in the lower extremity that was diagnosed last admission. She was evaluated by Dr. Lord who is also her primary care physician in addition to her primary bariatric surgeon which is Dr. Kenny Clement. She states that she was told that there was no changes were required in her medication. She complains right now of a severe headache, feeling weak and "talking stupid." We are asked to participate in her care to assist in managing her nutritional deficiencies. She reports tolerating tube feeding infusions at home. PAST MEDICAL HISTORY: 1. Anemia. 2. Asthma. 3. Degenerative joint disease. 4. GERD. 5. Hypothyroidism. 6. Chronic kidney disease. 7. Obesity status post bariatric surgery. 8. Gastric stricture status post resection. 9. Factor 5 Leiden deficiency. 10. Protein calorie malnutrition. 11. 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 13. Multiple nutritional deficiencies as noted above. 14. Iron-deficiency anemia. 15. Electrolyte derangements. 16. Constipation. 17. Thrush. 18. Depression. 19. Gastrojejunal anastomotic ulcer. 20. Gastritis. 21. Jejunitis. PAST SURGICAL HISTORY: 1. Appendectomy. 2. Tien-en-Y gastric bypass. 3. Tien-en-Y gastric bypass converted to CHRIS procedure. 4. Tien-en-Y gastric bypass with CHRIS procedure converted to a duodenal switch. 5. Resection of gastric stricture. 6. Colon surgery. SOCIAL HISTORY: The patient is a nurse practitioner at [employer]. She uses E cigarettes. She smoked in the past but does not currently smoke. She denies alcohol, recreational drug use. FAMILY HISTORY: Remarkable for colon polyps and reflux. There is no history of colon cancer. MEDICATION ALLERGIES: None. REVIEW OF SYSTEMS: Only remarkable for the information as noted above. She has a new expressive aphasia which was not present at the time of discharge on 08/31/2016. PHYSICAL EXAM: General: She is resting comfortably in the bed but is at times hypotensive. Her blood pressure varies from 89/61 to 96/59, pulse of 100-120. Respirations 19-20, temperature 101.1 degrees. In the emergency room was documented as a T-max of 104 degrees. HEENT: Noticeable in that her sclerae are anicteric. Her conjunctivae are pale. Oropharyngeal mucosal membranes are dry. She has a nasogastric tube in her nares. Pulmonary: She has rhonchi with occasional rales. Her breath sounds Heart: tachycardia . There are no murmurs, gallops, or rubs. Abdominal Exam: Reveals normoactive bowel sounds. The abdomen is soft, nontender with no rebound or guarding. Extremities: Bilaterally are notable for trace edema in the thigh but no pedal edema. Neurologic Exam: She is oriented to name and place. She has a difficult time expressing herself. Her pupils are equal and reactive but sluggish. Her face was symmetrical. She was able to move all 4s extremities. OBJECTIVE DATA: Reveals a hemoglobin 9.6 with hematocrit of 30.1 and a white count of 1.85 with 168,000 platelets. Her PT is 13.1 with an INR of 1.23. Her PTT is 30.6. Sodium 133, potassium 3.5, chloride 102, CO2 24, BUN 13, creatinine 0.5 with a glucose of 115. Calcium 7.6, total bilirubin 0.61, direct bilirubin 0.40, AST 46, ALT 26, alkaline phosphatase 85, total protein 4.6 and albumin 2.3. IMPRESSION: 1. Severe protein calorie malnutrition. 2. Multiple nutrient deficiencies. 3. Status post bariatric surgery. 4. Profound malnutrition. 5. Ongoing weight loss. 6. Stroke-like symptoms. 7. Sepsis secondary to probable pneumonia. RECOMMENDATION: 1. From a nutrition standpoint, I would not see the patient until she has a bedside evaluation. Please see the swallow study from 08/19/2016 where she had some penetration in her airway with thin liquids but tolerated thicker foods. Because of her stroke-like symptoms she will need bedside reassessment of her ability to swallow. I will discuss this with Emerson Campole in the morning. 2. Please continue her tube feedings as she tolerates. This will help minimize her sepsis and down regulate her SIRS. 3. I agree with cultures of her lines as well as from the periphery. 4. I agree with broad-spectrum antibiotics. 5. She is on Arixtra for factor V Leiden deficiency with recurrent DVTs. She is currently followed by Dr. Carmina Madrigal. Therefore please consult Dr. Madrigal for assistance in her care. 6. I agree with evaluation by neurology. 7. Additional recommendations to follow based on her clinical course.
--- NOTE | 2016-09-07 13:23 | PROGRESS NOTE ---
DATE: 09/07/2016 SUBJECTIVE: The patient is complaining of moderate headache. Alert and oriented x3. She denies any fever or chills. OBJECTIVE: Vital Signs: Temperature 99.9 degrees, heart rate 86, respiratory 14, blood pressure 112/76. O2 saturation 96% on room air. General: This is a chronically ill-looking and frail 50- year-old female lying in bed in no acute distress. HEENT: Head is normocephalic and atraumatic. Anicteric sclerae. Pale conjunctivae. Mucous membranes are dry. tube feeding in place. Neck supple. No JVD noted. No carotid bruits. No lymphadenopathy. Cardiovascular: S1, S2 heard. No murmurs, gallops, or rubs. Regular rate and rhythm. Respiratory: Clear bilaterally to auscultation. No work of breathing or using accessory muscles. Abdomen: Soft, nontender to palpation. Nondistended. Bowel sounds present. No organomegaly. Extremities: 1+ pitting edema in both lower extremities. Peripheral pulses present in both legs. Neurologic: The patient is alert and oriented x3. Able to move 4 extremities. Cranial nerves 2- 12 grossly normal. LABORATORY DATA: White cell count 2.76, hemoglobin 7.6, hematocrit 24.5, platelets 145,000. Sodium 142, potassium 3.1, chloride 113, bicarbonate 20. BUN 10. Creatinine 0.4 and calcium 7.0. ASSESSMENT AND PLAN: 1. Sepsis secondary to pneumonia. Actually, the blood culture shows gram-negative rods in 1 set of cultures. At this time, this patient is on meropenem. Dr. Whitney has stopped the vancomycin and Levaquin. We will continue following his recommendations. 2. Infectious encephalopathy. That condition has resolved. At the beginning, it was suspected some stroke, and Dr. Suarez was consulted from Neurology, who noted the mental status changes was related to the infection that she has. 3. Severe protein calorie malnutrition. The patient has been started on tube feedings and now she is receiving 20 mL/hours feedings. Dr. Renteria from is taking care of this issue. Help appreciated. 4. Factor V Leiden deficiency with recurrent deep venous thromboses. The patient is on Arixtra. We will continue with the same management. 5. Hypothyroidism. We will continue with Synthroid. 6. Hypokalemia. We will supplement that and follow. 7. Severe hypocalcemia. The patient has been started on calcium carbonate with vitamin D3 three times per day. We will check ionized calcium the next 3 days because it could be definitely related to severe hypoalbuminemia.
[2016-09-07] MEDS: XANAX PO SCH (20:15)
[2016-09-07] MEDS: SEROQUEL PO SCH (20:15)
[2016-09-07] MEDS: DIFLUCAN 200 MG/NS 100 ML IV SCH (22:01)
--- NOTE | 2016-09-07 22:36 | PROGRESS NOTE ---
DATE: 09/07/2016 SUBJECTIVE: The patient states that she is feeling much better today. She remains very fatigued and is concerned because her blood cultures are growing gram-negative artur. She reports mild chest discomfort and cough. She feels very congested. She notes that she is tolerating her tube feedings with Vital AF 1.2 at 20 mL/h. She reports a single solid bowel movement and denies constipation. Overall, she thinks that she is doing better since she has been receiving the antibiotics. OBJECTIVE: General: She is in no acute distress. Vital signs: Her blood pressure is 105/69, pulse 87, respiration 14, temperature of 98.8 degrees. HEENT: Remarkable for nasal jejunal feeding tube in the left naris. Oropharyngeal mucosal membranes are dry. Her sclerae are anicteric. Her conjunctivae are pale. Pulmonary: Lungs are clear anteriorly. Cardiovascular: She has a regular rate and rhythm. Abdomen: Soft and nontender with no rebound or guarding. She has palpable sutures in the midabdominal line. Extremities: Bilaterally are negative for cyanosis, clubbing or edema. OBJECTIVE DATA: Remarkable for hemoglobin of 7.6 with hematocrit of 24.5 and a white count of 2.76. Her platelets are 145,000. Sodium is 142, potassium 3.1, chloride 113, CO2 20, BUN 10, creatinine 0.4 with a glucose of 87 and a calcium of 7.0. Her KUB confirms that her nasal jejunal feeding tube remains in the appropriate position. IMPRESSION: 1. Severe protein calorie malnutrition. 2. Multiple nutrient deficiencies. 3. Status post duodenal switch. 4. Profound malnutrition. 5. Ongoing weight loss. 6. Sepsis secondary to gram-negative artur. 7. Possible pneumonia. 8. Stroke-like symptoms status post resolved. RECOMMENDATION: 1. From a GI perspective, I will increase her tube feedings to 30 mL/h. 2. On Friday I will ask Emerson Méndez to perform bedside swallow evaluation to assess her risk of aspiration. 3. Continue antibiotics as you are doing. 4. Continue Arixtra. 5. Her blood count has dropped approximately 2 g but there has been no visible GI blood loss. Therefore I would continue to monitor her clinical course. 6. With the multiple electrolyte deficiencies today I would check a CMP, magnesium and phosphorus in the morning. She will need IV supplementation as she has had multiple difficulties absorbing nutrients in the past.
[2016-09-08] MEDS: MERREM 1 GM in NS 50 ML IV SCH ×3 (01:00→16:20)
[2016-09-08] MEDS: NS 1,000 ML IV SCH ×2 (01:00→13:06)
[2016-09-08] MEDS: DEMEROL IV PRN ×4 (05:19→22:09)
[2016-09-08] MEDS: SODIUM CHLORIDE 0.9% INJ PRN ×3 (05:20→22:10)
[2016-09-08] MEDS: PHENERGAN IV PRN ×4 (05:20→22:10)
[2016-09-08 07:34] LABS: MANUAL DIFF NEEDED? NO
[2016-09-08 07:37] LABS: BASO% 0.5 % (0.0-0.8); EOS# 0.16 X1000 (0.0-0.7); EOS% 7.2 % (0.0-10.0); HEMATOCRIT 24.5 % (37.0-47.0); HEMOGLOBIN 7.7 g/dL (12.0-16.0); LYMPH# 0.84 X1000 (1.2-3.4); MCH 30.3 PG (27-31); MCHC 31.4 g/dL (33-37); MCV 96.5 FL (81-99); MONO# 0.15 X1000 (0.11-0.59); MONO% 6.8 % (1.7-9.3); NEUT% 47.5 % (42.2-75.2); PLT 157 X1000 (130-400); RBC 2.54 XMIL (4.2-5.4)
[2016-09-08 07:58] LABS: AGAP 8; BUN 5 mg/dL (8-22); CALCIUM 7.4 mg/dL (8.8-10.2); CHLORIDE 110 mmol/L (98-107); COSMO 278; POTASSIUM 3.3 mmol/L (3.5-5.1); SODIUM 141 mmol/L (136-145); TCO2 23 mmol/L (25-35)
[2016-09-08] MEDS: ARIXTRA SUBQ SCH (09:21)
[2016-09-08] MEDS: LEXAPRO PO SCH (09:21)
[2016-09-08] MEDS: PROTONIX IV SCH ×2 (09:22→21:22)
[2016-09-08] MEDS: SODIUM CHLORIDE 0.9% INJ SCH (09:22)
[2016-09-08] MEDS: OSCAL 500 + D PO SCH ×3 (09:22→16:20)
[2016-09-08] MEDS: SYNTHROID IV SCH (09:23)
[2016-09-08] MEDS: ATROVENT NEB INH SCH ×3 (09:50→23:37)
[2016-09-08] MEDS: XOPENEX NEB INH SCH ×3 (09:51→23:37)
[2016-09-08] MEDS ORDERED: CALCIUM GLUCONATE 2 GM in NS 100 ML IV ONE (10:30)
[2016-09-08] MEDS ORDERED: POTASSIUM CHLORIDE 60 MEQ in NS 500 ML IV ONE (11:30)
--- NOTE | 2016-09-08 12:04 | Carotid Study ---
DATE: 09/06/2016 PROCEDURE: Carotid duplex imaging. REFERRING PHYSICIAN: Dr. Reinoso INTERPRETING PHYSICIAN: Dr. Araya TECH: [place] INDICATIONS: OBSERVED DATA RIGHT LEFT Brachial Blood Pressure Carotid Pulse Bruits: Carotid/Sub DIAGRAM OF ULTRASOUND IMAGING R L RIGHT INT EXT INT EXT LEFT Dio (cm/s) Dio (cm/s) Subclavian 91/9 Subclavian 75/5 CCA Proximal 76/23 CCA Proximal 96/28 CCA Distal 70/20 CCA Distal 74/24 Bulb 59/22 Bulb 67/22 ICA Proximal 81/22 ICA Proximal 80/26 ICA Mid 83/38 ICA Mid 51/23 ICA Distal 72/29 ICA Distal 82/37 ECA 73/16 ECA 66/8 Vertebral 45/16 A Vertebral 48/12 A ICA/CCA Ratio 1.1 ICA/CCA Ratio 0.9 % Stenosis 0 to 39 % Stenosis 0 to 39 PHYSICIAN INTERPRETATION: No significant plaque disease identified. There is antegrade vertebral flow bilaterally.
--- NOTE | 2016-09-08 13:27 | PROGRESS NOTE ---
DATE: 09/08/2016 SUBJECTIVE: Patient is feeling fine. No headache today. Alert and oriented x3. Denies any fever or chills. OBJECTIVE: Vital Signs: Temperature 98.0 degrees, heart rate 60, respiratory rate 16, blood pressure 108/77, O2 saturation 98% on room air. General Examination: This is a chronically ill looking and frail, 50-year-old female lying in bed, in no acute distress. HEENT: Head is normocephalic, atraumatic. Anicteric sclerae and pale conjunctivae. Mucous membranes moist. Neck: Supple. No JVD noted. No carotid bruits. No lymphadenopathy. No thyromegaly. Cardiovascular: S1, S2 heard. No murmurs, gallops, or rubs. Regular rate and rhythm. Respiratory: Clear bilaterally to auscultation. No work of breathing or using accessory muscles. Abdomen: Soft, nontender to palpation. Bowel sounds present. No organomegaly. Extremities: No clubbing or cyanosis. There is 1+ pitting edema in both lower extremities. Peripheral pulses present in both legs. Neurological: Patient is alert and oriented x3. Able to move 4 extremities. Cranial nerves 2 through 12 grossly normal. LABORATORY DATA: White cell count 2.21, hemoglobin 7.7, hematocrit 24.5, platelets 157,000. Sodium 141, potassium 3.3, chloride 110, bicarbonate 23, BUN 5, creatinine 0.3. ASSESSMENT: 1. Sepsis secondary to pneumonia. Blood culture shows Klebsiella pneumonia. Currently this patient is on meropenem. We will leave to Dr. Whitney to decide what antibiotic he wants to switch off. 2. Infectious encephalopathy. That condition has completely resolved. 3. Severe protein calorie malnutrition. Dr. Renteria is following this patient and she has been restarted on jejunal tube feedings at 30 mL/h which is the goal. 4. Factor V Leiden deficiency with recurrent deep vein thromboses. Patient currently is on Arixtra. Will continue with the same management. 5. Hypothyroidism. Will continue with Synthroid. 6. Hypokalemia. Will supplement and follow. 7. Severe hypocalcemia. Patient has been started on calcium carbonate and also she is receiving 2 g of calcium gluconate almost every day. PLAN: Overall this patient is doing fine. From a GI standpoint, they are planning to do a swallow evaluation to make sure that this patient is not aspirating. From an ID standpoint, we will see for how long Dr. Whitney is planning to put this patient on antibiotics.
[2016-09-08] MEDS: DIFLUCAN 200 MG/NS 100 ML IV SCH (21:10)
[2016-09-08] MEDS: SEROQUEL PO SCH (21:22)
[2016-09-08] MEDS: XANAX PO SCH (21:23)
[2016-09-09] MEDS: MERREM 1 GM in NS 50 ML IV SCH ×3 (01:19→16:39)
[2016-09-09] MEDS: ATROVENT NEB INH SCH ×4 (03:29→23:35)
[2016-09-09] MEDS: XOPENEX NEB INH SCH ×4 (03:30→23:35)
[2016-09-09] MEDS: NS 1,000 ML IV SCH ×2 (06:30→16:38)
[2016-09-09] MEDS: PHENERGAN IV PRN ×3 (06:38→22:17)
[2016-09-09] MEDS: DEMEROL IV PRN ×4 (06:38→22:17)
[2016-09-09] MEDS: SODIUM CHLORIDE 0.9% INJ PRN ×2 (06:38→22:17)
[2016-09-09 07:11] LABS: MANUAL DIFF NEEDED? NO
[2016-09-09 07:20] LABS: BASO% 0.4 % (0.0-0.8); EOS# 0.15 X1000 (0.0-0.7); EOS% 6.4 % (0.0-10.0); HEMATOCRIT 24.7 % (37.0-47.0); HEMOGLOBIN 7.7 g/dL (12.0-16.0); LYMPH# 1.17 X1000 (1.2-3.4); LYMPH% 50.2 % (20.5-51.1); MCH 29.8 PG (27-31); MCHC 31.2 g/dL (33-37); MCV 95.7 FL (81-99); MONO# 0.12 X1000 (0.11-0.59); MONO% 5.2 % (1.7-9.3); MPV 11.5 FL (7.4-10.4); NEUT% 37.8 % (42.2-75.2); PLT 164 X1000 (130-400); RBC 2.58 XMIL (4.2-5.4)
[2016-09-09 07:54] LABS: AGAP 6; BUN 4 mg/dL (8-22); CHLORIDE 111 mmol/L (98-107); COSMO 279; SODIUM 142 mmol/L (136-145); TCO2 25 mmol/L (25-35)
[2016-09-09 08:27] LABS: CALCIUM 6.9 mg/dL (8.8-10.2)
[2016-09-09] MEDS ORDERED: CALCIUM GLUCONATE 2 GM in NS 100 ML IV ONE (09:04)
[2016-09-09] MEDS: PROTONIX IV SCH ×2 (09:50→21:41)
[2016-09-09] MEDS: SYNTHROID IV SCH (09:50)
[2016-09-09] MEDS: SODIUM CHLORIDE 0.9% INJ SCH ×3 (09:50→21:41)
[2016-09-09] MEDS: ARIXTRA SUBQ SCH (09:51)
[2016-09-09] MEDS: LEXAPRO PO SCH (09:51)
[2016-09-09] MEDS: WELLBUTRIN XL PO SCH (09:52)
[2016-09-09] MEDS: OSCAL 500 + D PO SCH ×3 (09:52→16:38)
[2016-09-09 11:41] LABS: ALBUMIN 1.7 g/dL (3.5-5.0); MAGNESIUM 1.8 mg/dL (1.5-2.7)
[2016-09-09] MEDS ORDERED: AMITIZA PO ONE ×2 (12:37→19:54)
[2016-09-09] MEDS: MIRALAX PO SCH (14:00)
--- NOTE | 2016-09-09 16:49 | PROGRESS NOTE ---
DATE: 09/09/2016 Ms. Aziza Alexander is awake, alert, attentive and appropriate. She reports a little bit of word finding problems but she has not had any more altered awareness. Her headache is improved. She did well on bedside language testing including naming, repeating, reading. She followed spoken and written commands including complex commands and commands requiring right/left distinction and digit distinction. I do not have any new suggestion from neurologic standpoint. Thanks for allowing me to follow Ms. Aziza Alexander.
[2016-09-09] MEDS: ZINC SULFATE PO SCH (19:01)
[2016-09-09] MEDS: SANTYL OINT TOP SCH (19:02)
[2016-09-09] MEDS: ROCEPHIN 1 GM/NS 50 ML IV SCH (19:09)
--- NOTE | 2016-09-09 19:33 | PROGRESS NOTE ---
DATE: 09/09/2016 SUBJECTIVE: Patient is feeling fine. Denies any fever, chills. Alert and oriented x3. OBJECTIVE: Vital Signs: Temperature 97.5 degrees, heart rate 68, respiratory rate 17, blood pressure 108/59, O2 saturation 99% on room air. General Examination: This is a chronically ill- looking and frail, 50-year-old female, lying in bed, in no acute distress. HEENT: Head is normocephalic, atraumatic. Anicteric sclerae. Pale conjunctivae. Mucous membranes moist. Neck: Supple. No JVD noted. No carotid bruits. No lymphadenopathy. No thyromegaly. Cardiovascular: S1 and S2 heard. No murmurs, gallops, or rubs. Regular rate and rhythm. Respiratory Examination: Clear bilaterally to auscultation. No work of breathing or using accessory muscles. Abdomen: Soft, nontender to palpation. Bowel sounds present. No organomegaly. Extremities: 1+ pitting edema in both lower extremities. Peripheral pulses present in both legs. Neurological Examination: Patient is alert and oriented x3. Moves 4 extremities. LABORATORY DATA: White cell count 2.33, hemoglobin 7.7, hematocrit 24.7, platelets 164,000. Sodium 142, potassium 4.0, chloride 111, bicarbonate 25, BUN 4, creatinine 0.3, calcium 6.9, and ionized calcium . ASSESSMENT AND PLAN: 1. Sepsis secondary to pneumonia. Blood culture shows Klebsiella pneumonia. By now this patient is on Merrem. Dr. Whitney is managing the antibiotics. We will leave to him the decision to change to different a antibiotic. 2. Infectious encephalopathy. That condition is completely resolved. 3. Severe protein calorie malnutrition. Dr. Renteria managing the jejunal feedings. By now she is receiving 30 mL/h. She is supposed to have a swallow evaluation to make sure that she is doing fine. We will follow the results. 4. Factor V Leiden deficiency with recurrent DVT. The patient developed a DVT in her last hospitalization. Now in the hospital she is on Arixtra. We will continue with the same treatment. 5. Hypothyroidism. We will continue with Synthroid. 6. Hypokalemia. We will supplement potassium and follow. 7. Hypocalcemia. Calcium and BNP low. Ionized calcium is okay. I think this is because of severe hypoalbuminemia. We will at least replete potassium and follow. We prefer to have a calcium of 7.0 and above. 8. Overall the plan is to send this patient home as soon as she is cleared by Nephrology and GI.
[2016-09-09] MEDS ORDERED: DULCOLAX PR ONE (19:54)
[2016-09-09] MEDS ORDERED: DULCOLAX PR PRN (19:54)
[2016-09-09] MEDS: DIFLUCAN 200 MG/NS 100 ML IV SCH (21:41)
[2016-09-09] MEDS: XANAX PO SCH (21:41)
[2016-09-09] MEDS: SEROQUEL PO SCH (21:41)
--- NOTE | 2016-09-09 21:42 | PROGRESS NOTE ---
DATE: 09/09/2016 PRESENT ILLNESS: The patient has a Klebsiella bacteremia which I think originates from Klebsiella pneumonia. MEDICATIONS: Patient currently is receiving meropenem. PHYSICAL EXAMINATION: Vital Signs: Temperature is 98.0 degrees, pulse 84, respirations 16, blood pressure 106/65. Lungs-clear to auscultation. CV-regular HR. Abdomen-soft, non- tender. Neurological-alert, moves all extremities. Legs-edematous. DATA: Swab for influenza was negative. Blood cultures are growing Klebsiella. Urinalysis showed no white cells or bacteria. The patient's IgG level was 632. Patient's CBC for today showed a white count of 2330, hemoglobin 7.7 and platelet count 164,000. Creatinine is 0.3. The GFR is greater than 60.. ASSESSMENT AND PLAN: The patient has Klebsiella bacteremia from pneumonia. The plan is to discontinue meropenem and start the patient on Rocephin 1 g IV daily. In addition, I am going to order a repeat chest x-ray and repeat blood cultures for tomorrow. COMORBIDITIES: Include the fact that the patient has had 2 gastric bypass procedures, she also has a factor V deficiency and she has hypothyroidism. The patient's IgG level is only marginally low at 632. I do not think it is clinically significant. I plan in followup to repeat the level to see if it is changed. [facility]
--- NOTE | 2016-09-09 21:51 | CONSULTATION ---
DATE OF CONSULTATION: 09/06/2016 PHYSICIAN REQUESTING CONSULTATION: Kanu Hallman M.D. REASON FOR CONSULTATION: Factor V Leiden. Patient known. HISTORY OF PRESENT ILLNESS: Ms. Aziza Alexander is a 50-year-old female known to us as we previously saw her when she was in the hospital less than a month ago for an acute DVT. Patient was discharged on Arixtra. She has severe protein calorie malnutrition secondary to previous gastric bypass. The patient has no acute signs or symptoms of DVT or PT at this time. As mentioned previously, she had a DVT when she was last admitted. Patient has Factor V Leiden deficiency and a history of recurrent DVTs. She is in now for sepsis secondary to pneumonia as well as for stroke-like symptoms. PAST MEDICAL HISTORY: 1. Asthma. 2. Severe protein calorie malnutrition. 3. Anxiety. 4. Factor V Leiden deficiency. 5. Hemorrhoids. 6. Obesity. PAST SURGICAL HISTORY: 1. Gastric bypass with revision. 2. Left ACL repair x3. 3. Cholecystectomy. 4. Appendectomy. 5. Cathi filter placement. 6. Left upper extremity PICC line placement. SOCIAL HISTORY: Patient lives with her . She denies any drugs or alcohol. FAMILY HISTORY: Positive for PUD. Her mother also had lung cancer with brain mets and her mother is now . REVIEW OF SYSTEMS: As per HPI. Other systems negative or noncontributory. PHYSICAL EXAMINATION: Vital signs: Temperature 98.2 degrees, heart rate 93, respirations 16, blood pressure 108/73, O2 saturations 100% on room air. General: female, lying in hospital bed in ICU. She is in no acute distress. HEENT: Head normocephalic, atraumatic. Eyes: Pupils equal, round, reactive. Ears, nose, throat, neck, and mouth: Oral mucosa is normal. Gross auditory acuity is intact. Trachea is midline. Cardiovascular: S1-S2 heard. No murmurs, gallops, or rubs appreciated. Respiratory: She has some bilateral wheezing and rhonchi consistent with her pneumonia diagnosis. Gastrointestinal: Abdomen is soft, nondistended. Musculoskeletal: No bony abnormalities. Extremities: No extremity edema. Neurologic: Patient is alert and oriented x3 with no focal motor deficits noted at this time. LABORATORY STUDIES: Head CT was negative. White blood cells 4.93, hemoglobin 8.8, hematocrit 27.6, platelets 147,000. Sodium 143, potassium 3.3, chloride 113, CO2 21, BUN 11, creatinine 0.3, glucose 76, calcium 625. Chest x-ray shows infiltrates. ASSESSMENT AND PLAN: 1. Factor V Leiden deficiency. Continue patient on Arixtra at this time. We will lower the dose down to 5 mg daily as she is lower in weight. Continue to monitor for any bleeding. Continue to monitor platelets. 2. Pneumonia with sepsis. Patient will continue on her current IV antibiotics. She also continue nebulizer treatments and O2 support. 3. Stroke like symptoms. These seem to have resolved at this time. There is discussion on getting an MRI per the primary team. Continue neurologic checks as scheduled. Neurology has been consulted. 4. Severe protein calorie malnutrition. Continue management as per Dr. Renteria. Continue to correct electrolytes as needed. Thank you for allowing us to participate in Ms. Aziza Alexander care. We will continue to follow along and adjust our treatment plan per hospital course. Dictated by DRE Jefferson for Carmina Black MD
[2016-09-10] MEDS: ATROVENT NEB INH SCH ×4 (03:42→21:15)
[2016-09-10] MEDS: XOPENEX NEB INH SCH ×4 (03:43→21:15)
[2016-09-10] MEDS: DEMEROL IV PRN ×4 (04:32→20:52)
[2016-09-10] MEDS: SODIUM CHLORIDE 0.9% INJ PRN (04:32)
[2016-09-10] MEDS: NS 1,000 ML IV SCH ×2 (04:32→20:17)
[2016-09-10] MEDS: PHENERGAN IV PRN ×4 (04:32→20:36)
[2016-09-10 06:58] LABS: MANUAL DIFF NEEDED? NO
[2016-09-10 07:06] LABS: BASO% 0.6 % (0.0-0.8); EOS# 0.14 X1000 (0.0-0.7); EOS% 4.4 % (0.0-10.0); HEMATOCRIT 25.5 % (37.0-47.0); HEMOGLOBIN 8.2 g/dL (12.0-16.0); LYMPH# 1.25 X1000 (1.2-3.4); LYMPH% 39.6 % (20.5-51.1); MCH 30.7 PG (27-31); MCHC 32.2 g/dL (33-37); MCV 95.5 FL (81-99); MONO# 0.22 X1000 (0.11-0.59); MPV 11.8 FL (7.4-10.4); NEUT% 48.4 % (42.2-75.2); PLT 208 X1000 (130-400); RBC 2.67 XMIL (4.2-5.4)
[2016-09-10 07:23] LABS: AGAP 8; BUN 5 mg/dL (8-22); CALCIUM 7.6 mg/dL (8.8-10.2); CHLORIDE 104 mmol/L (98-107); COSMO 276; POTASSIUM 3.8 mmol/L (3.5-5.1); SODIUM 140 mmol/L (136-145); TCO2 28 mmol/L (25-35)
--- NOTE | 2016-09-10 07:57 | Diag Imaging Result Document ---
PROCEDURE NAME: CHEST-2 VIEWS - 09/10/2016 PA AND LATERAL RADIOGRAPH OF THE CHEST: COMPARISON: 09/05/2016. FINDINGS: Atelectasis and/or infiltrate at the left lung base is essentially stable. There appears to have been some improvement of the right basilar density, however. There is blunting of the posterior costophrenic angles similar to the previous study suggesting a trace effusion, probably on the left. No new consolidation is identified. Cardiac silhouette is stable. IMPRESSION: Some improvement of the mild right basilar atelectasis and/or infiltrate but stability on the left.
[2016-09-10] MEDS: WELLBUTRIN XL PO SCH ×2 (08:39→08:42)
[2016-09-10] MEDS: ZINC SULFATE PO SCH (08:39)
[2016-09-10] MEDS: OSCAL 500 + D PO SCH ×3 (08:39→16:58)
[2016-09-10] MEDS: LEXAPRO PO SCH (08:39)
[2016-09-10] MEDS: ARIXTRA SUBQ SCH (08:40)
[2016-09-10] MEDS: AMITIZA PO SCH (08:40)
[2016-09-10] MEDS: SANTYL OINT TOP SCH (08:41)
[2016-09-10] MEDS: MIRALAX PO SCH (08:41)
[2016-09-10] MEDS: PROTONIX IV SCH ×2 (08:42→20:15)
[2016-09-10] MEDS: SODIUM CHLORIDE 0.9% INJ SCH ×2 (08:42→09:00)
[2016-09-10] MEDS: SYNTHROID IV SCH (08:47)
--- NOTE | 2016-09-10 13:49 | PROGRESS NOTE ---
DATE: 09/10/2016 PRESENT ILLNESS: The patient has a Klebsiella bacteremia originating from Klebsiella pneumonia. MEDICATIONS: Patient yesterday was switched from meropenem to Rocephin. The patient had blood cultures drawn yesterday and the patient will continue to receive antibiotics but she will need 14 days from when the blood cultures have turned negative. Blood cultures are being drawn this morning. So as far as antibiotic therapy goes we will need to keep it going at least 14 days from today, assuming that the repeat blood cultures are sterile. PHYSICAL EXAMINATION: Vital Signs: Temperature is 97.9 degrees, pulse 64, respirations 16, blood pressure 103/75. General: This is a somewhat ill-appearing, middle-aged female. She is in no acute distress. Lungs: Clear to auscultation. Cardiovascular: Heart rate is regular. Abdomen: Soft and nontender. The patient has a PICC in the left arm. The site is not swollen or erythematous. LAB AND X-RAY: Chest x-ray shows that the infiltrates in the right lung are improving. The patient's CBC today shows a white count of 3,160, hemoglobin 8.2, and platelet count 208,000. Creatinine 0.3. GFR is greater than 60. ASSESSMENT AND PLAN: The patient has a Klebsiella pneumoniae and bacteremia. She will need at least 14 days of treatment with IV Rocephin because even though the organism is susceptible to Levaquin, the patient does have some intestinal issues from the surgery she said and I am not sure exactly how well she is able to absorb medications. I think it would be safer to treat her with intravenous Rocephin rather than something through the GI tract. She will need at least 14 days from today with the Rocephin. Right now the patient's is ill and she is awfully weak and hopefully within 1-3 days will be able to get the patient home. The patient's comorbidities are that she has had 2 gastric bypass procedures. She also has a factor V deficiency and she also has hypothyroidism. She does have a marginally low IgG at 632. I do not think this is clinically significant but as an outpatient I will try to check her IgG level again.
[2016-09-10] MEDS: ROCEPHIN 1 GM/NS 50 ML IV SCH (16:58)
--- NOTE | 2016-09-10 17:19 | PROGRESS NOTE ---
DATE: 09/10/2016 SUBJECTIVE: This patient states that she is feeling much better. She still continues with an NG tube. She states that she has been tolerating p.o., I will ask for a swallow evaluation to see if we can safely feed this patient. She denies nausea, she denies vomiting, she denies diarrhea, she is complaining about some edema at the level of the lower extremities. OBJECTIVE: Vital Signs: Temperature 98.3 degrees, pulse 81, respiratory rate 18, blood pressure 105/69, O2 saturation 96% on room air. HEENT: Head normocephalic. No trauma. PERRLA. Neck: Supple. No JVD. No masses. Central trachea. Chest: Clear to auscultation. No wheezing. No rales. Cardiovascular: RRR. No murmurs. No gallops. No rubs. Extremities: 1+ pitting edema at the lower extremities. Neurological: The patient is alert and oriented x4. No focal neurological deficits. LABORATORY: WBC 3.1, hemoglobin 8.2, hematocrit 25.5, platelets 208,000. Sodium 140, potassium 3.8, chloride 104, bicarbonate 28, BUN 5, creatinine 0.3, glucose 91, calcium 7.6. ASSESSMENT AND PLAN: 1. Sepsis secondary to pneumonia, blood culture showed a Klebsiella pneumonia. This patient is on ceftriaxone. Infectious Disease Department is following this patient and they recommend at least 14 days of IV Rocephin. This patient is getting better. 2. Infectious encephalopathy. Resolved. 3. Severe protein calorie malnutrition. She is getting jejunal feeding, she is getting for now 30 mL/hr. I asked for a swallow evaluation to see if she can be safely fed through her mouth. We will continue to monitor. 4. Factor V Leiden deficiency with recovering deep venous thrombosis. Will continue this patient on Arixtra. 5. Hypothyroidism. Continue with Synthroid. 6. Hypokalemia. Resolved. 7. Hypocalcemia. Will monitor, probably the low calcium is related to the low albumin. 8. Overall, this patient is doing better, probably this patient will be discharged in the next couple days or so, I will wait for the results of the swallow evaluation and I will talk to Dr. Renteria to see when this patient can be safely discharged.
[2016-09-10] MEDS: SEROQUEL PO SCH (20:15)
[2016-09-10] MEDS: XANAX PO SCH (20:15)
[2016-09-10] MEDS: DIFLUCAN 200 MG/NS 100 ML IV SCH (20:17)
[2016-09-11] MEDS: XOPENEX NEB INH SCH ×4 (03:49→21:15)
[2016-09-11] MEDS: ATROVENT NEB INH SCH ×4 (03:49→21:15)
[2016-09-11 06:48] LABS: MANUAL DIFF NEEDED? NO
[2016-09-11 07:06] LABS: BASO% 0.7 % (0.0-0.8); EOS# 0.21 X1000 (0.0-0.7); EOS% 7.1 % (0.0-10.0); HEMATOCRIT 24.6 % (37.0-47.0); HEMOGLOBIN 7.6 g/dL (12.0-16.0); LYMPH% 44.2 % (20.5-51.1); MCH 29.9 PG (27-31); MCHC 30.9 g/dL (33-37); MCV 96.9 FL (81-99); MONO# 0.21 X1000 (0.11-0.59); MONO% 7.1 % (1.7-9.3); MPV 12.1 FL (7.4-10.4); NEUT% 40.9 % (42.2-75.2); PLT 242 X1000 (130-400); RBC 2.54 XMIL (4.2-5.4)
[2016-09-11 07:34] LABS: AGAP 8; BUN 6 mg/dL (8-22); CALCIUM 7.6 mg/dL (8.8-10.2); CHLORIDE 107 mmol/L (98-107); COSMO 282; POTASSIUM 3.9 mmol/L (3.5-5.1); SODIUM 143 mmol/L (136-145); TCO2 28 mmol/L (25-35)
[2016-09-11] MEDS: WELLBUTRIN XL PO SCH (09:30)
[2016-09-11] MEDS: AMITIZA PO SCH (09:30)
[2016-09-11] MEDS: MIRALAX PO SCH (09:30)
[2016-09-11] MEDS: DEMEROL IV PRN ×4 (09:31→22:42)
[2016-09-11] MEDS: ARIXTRA SUBQ SCH (09:31)
[2016-09-11] MEDS: SYNTHROID IV SCH (09:31)
[2016-09-11] MEDS: OSCAL 500 + D PO SCH ×3 (09:31→17:22)
[2016-09-11] MEDS: PHENERGAN IV PRN ×4 (09:31→22:41)
[2016-09-11] MEDS: LEXAPRO PO SCH (09:31)
[2016-09-11] MEDS: ZINC SULFATE PO SCH (09:31)
[2016-09-11] MEDS: SANTYL OINT TOP SCH (09:32)
[2016-09-11] MEDS: SODIUM CHLORIDE 0.9% INJ SCH ×3 (09:32→21:51)
[2016-09-11] MEDS: PROTONIX IV SCH ×2 (09:32→21:51)
[2016-09-11] MEDS: NS 1,000 ML IV SCH ×2 (09:33→20:16)
--- NOTE | 2016-09-11 16:02 | PROGRESS NOTE ---
DATE: 09/11/2016 PRESENT ILLNESS: The patient has a Klebsiella bacteremia. It could have originated from a possible Klebsiella pneumonia. In addition the patient has a PICC in place and I think it is possible that the infection arose from the PICC and then hematogenously went to the lung to cause Klebsiella pneumonia. MEDICATIONS: Patient currently is on Rocephin and fluconazole. PHYSICAL EXAMINATION: Vital Signs: Temperature is 98.1 degrees, pulse 92, respirations 18, blood pressure 100/74. General: This is a chronically ill-appearing, middle-aged female. She is in no acute distress. Lungs: Clear to auscultation. Cardiovascular: Regular heart rate. Abdomen: Soft and nontender. Extremities: There is a PICC in the patient's left arm. The site is not erythematous or swollen. LABORATORY AND X-RAY: The CBC today shows a white count of 2940, hemoglobin 7.6 and platelet count 242,000. Creatinine is 0.3. GFR is greater than 60. Blood cultures were drawn yesterday the results of which are still pending. ASSESSMENT AND PLAN: The patient has a Klebsiella bacteremia and pneumonia. She may have had also an infection of her PICC which resulted in the bacteremia. The plan now is to remove the patient's PICC and culture the tip. Blood cultures were drawn yesterday. If they are sterile, then the patient I think would be best served by having a Proctor catheter placed. I talked to the patient and Dr. Renteria. The patient probably will need on a long-term basis intravenous hyperalimentation and therefore I think that since this is going to be a long time a Proctor would be better than to have another PICC put in. I do not think a Port-A-Cath would be best because it is really not designed to be used every day. My plan then is to take out the PICC and culture the tip. Continue Rocephin and the first time that the patient's repeat blood cultures are sterile then have a Proctor catheter inserted. Patient's comorbidities include the fact that she has a GI problem and needs long-term IV access for nutrition and also for hydration and also possibly for medications. Plan to treat with the Rocephin for at least 14 days from when the 1st blood culture drawn is negative. COMORBIDITIES: Include that she has the GI dysfunction and she needs that to have a long-term IV access. She also has a factor V deficiency and hypothyroidism. She did have a marginally low IgG at 632. I doubt that this is clinically significant.
--- NOTE | 2016-09-11 16:12 | PROGRESS NOTE ---
DATE: 09/11/2016 SUBJECTIVE: This patient is feeling better. She still continues with NG tube. She states that she has been tolerating p.o. as well. She denies nausea, vomiting. No diarrhea. She is still complaining of edema in the lower extremity and pain so I will ask for lower extremity ultrasound to rule out DVT. OBJECTIVE: Vital Signs: Temperature 98.1 degrees, pulse 92, respiratory rate 18, blood pressure 100/74, O2 saturation 98 on room air. HEENT: Head normocephalic. No trauma. PERRLA. Neck: Supple. No JVD. No masses. Central trachea. Chest: Clear to auscultation. No wheezing. No rales. Cardiovascular: RRR. No murmurs. No gallops. No rubs. Extremities: 1+ pitting edema of the lower extremity and painful to palpation and mobilization. Neurological Examination: The patient is alert and oriented x4. No focal neurological deficits. LABORATORY: WBC 2.9, hemoglobin 7.6, hematocrit 24.6, platelets 242,000. Sodium 143, potassium 3.9, chloride 107, bicarbonate 28, BUN 6, creatinine 0.3, calcium 7.6, glucose 85. ASSESSMENT AND PLAN: 1. Sepsis secondary to pneumonia, blood cultures showed a Klebsiella pneumonia. This patient is on ceftriaxone. Infectious Disease Department is following this patient and they have recommended treatment for at least 14 days of IV Rocephin. This patient is getting better. 2. Infectious encephalopathy resolved. 3. Severe protein calorie malnutrition. She is getting jejunostomy feeding, she is getting for now 30 mL/h. Dr. Renteria is monitoring this patient. 4. Factor V Leiden deficiency with previous DVT. Will continue this patient on Arixtra. 5. Hypothyroidism. Continue with the Synthroid. 6. Hypokalemia, resolved. 7. Hypocalcemia, this is much better. We will continue to monitor. Overall, this patient is doing better. I will get a lower extremity ultrasound to rule out any new DVT. I already talked to Dr. Renteria and Dr. Whitney about this patient. Probably this patient will be discharged in 1 or 2 days.
[2016-09-11] MEDS: ROCEPHIN 1 GM/NS 50 ML IV SCH (17:22)
[2016-09-11] MEDS: DIFLUCAN 200 MG/NS 100 ML IV SCH (20:15)
[2016-09-11] MEDS: SEROQUEL PO SCH (21:51)
[2016-09-11] MEDS: XANAX PO SCH (21:52)
[2016-09-11] MEDS: SODIUM CHLORIDE 0.9% INJ PRN (22:42)
[2016-09-12] MEDS: NS 1,000 ML IV SCH ×3 (02:11→15:01)
[2016-09-12] MEDS: ATROVENT NEB INH SCH ×4 (03:59→21:20)
[2016-09-12] MEDS: XOPENEX NEB INH SCH ×4 (03:59→21:20)
[2016-09-12] MEDS: DEMEROL IV PRN ×4 (04:37→21:26)
[2016-09-12] MEDS: SODIUM CHLORIDE 0.9% INJ PRN ×2 (04:37→21:26)
[2016-09-12] MEDS: PHENERGAN IV PRN ×4 (04:38→21:25)
[2016-09-12 06:59] LABS: MANUAL DIFF NEEDED? NO
[2016-09-12 07:17] LABS: EOS% 6.6 % (0.0-10.0); HEMATOCRIT 24.9 % (37.0-47.0); LYMPH% 42.6 % (20.5-51.1); MCH 31.1 PG (27-31); MCHC 32.1 g/dL (33-37); MCV 96.9 FL (81-99); MONO# 0.17 X1000 (0.11-0.59); MONO% 5.6 % (1.7-9.3); MPV 11.7 FL (7.4-10.4); NEUT% 44.2 % (42.2-75.2); PLT 263 X1000 (130-400); RBC 2.57 XMIL (4.2-5.4)
[2016-09-12 07:43] LABS: AGAP 9; BUN 7 mg/dL (8-22); CALCIUM 7.8 mg/dL (8.8-10.2); CHLORIDE 108 mmol/L (98-107); COSMO 281; SODIUM 142 mmol/L (136-145); TCO2 25 mmol/L (25-35)
[2016-09-12] MEDS ORDERED: PHENERGAN IV ONE (10:44)
[2016-09-12] MEDS ORDERED: SODIUM CHLORIDE 0.9% INJ ONE (10:44)
[2016-09-12] MEDS: SODIUM CHLORIDE 0.9% INJ SCH ×4 (10:53→21:03)
[2016-09-12] MEDS: ARIXTRA SUBQ SCH (10:54)
[2016-09-12] MEDS: PROTONIX IV SCH ×2 (10:54→21:03)
[2016-09-12] MEDS: SYNTHROID IV SCH (10:54)
[2016-09-12] MEDS: AMITIZA PO SCH (10:59)
[2016-09-12] MEDS: OSCAL 500 + D PO SCH ×3 (10:59→17:46)
[2016-09-12] MEDS: SANTYL OINT TOP SCH (10:59)
[2016-09-12] MEDS: MIRALAX PO SCH (10:59)
[2016-09-12] MEDS: WELLBUTRIN XL PO SCH (10:59)
[2016-09-12] MEDS: LEXAPRO PO SCH (10:59)
[2016-09-12] MEDS: ZINC SULFATE PO SCH (10:59)
--- NOTE | 2016-09-12 11:54 | PROGRESS NOTE ---
DATE: 09/12/2016 SUBJECTIVE: This patient is feeling better. She continues with the jejunal feeding. She states that she has been tolerating p.o. as well. She denies nausea, vomiting. No diarrhea. She is still complaining of edema in the lower extremity and also pain. Yesterday I asked for a Doppler ultrasound of the lower extremities pending results. OBJECTIVE: Vital Signs: Temperature 98.1 degrees, pulse 79, respiratory rate 18, blood pressure 118/72, oxygen saturation 95% on room air. HEENT: Head normocephalic. No trauma. PERRLA. Neck: Supple. No JVD. No masses. Central trachea. Chest: Clear to auscultation. No wheezing. No rales. Cardiovascular: RRR. No murmurs. No gallops or rubs. Extremities: 1+ lower extremity edema and painful to palpation and mobilization. Neurological examination: Patient is alert and oriented x4. No focal neurological deficits. LABORATORY: WBC 3, hemoglobin 8, hematocrit 24.9, platelets 263. Sodium 142, potassium 4, chloride 108, bicarbonate 25, BUN 7, creatinine 0.3, glucose 94, calcium 7.8. ASSESSMENT AND PLAN: 1. Sepsis secondary to pneumonia. Blood cultures showed Klebsiella pneumonia. This patient is on ceftriaxone. Infectious Disease Department is following this patient, and they have recommended treatment for at least 2 weeks of intravenous Rocephin. This patient is getting better. The blood pressure has been stable. 2. Infectious encephalopathy, resolved. 3. Severe protein calorie malnutrition. She is getting jejunostomy feeding. She is getting for now 30 mL/hour. Dr. Renteria is monitoring this patient. 4. Factor V Leiden deficiency with previous deep vein thrombosis. We will continue this patient on Arixtra. 5. Hypothyroidism. Continue with Synthroid. 6. Hypokalemia, resolved. 7. Hypocalcemia. This is much better. We will continue to monitor. Overall, this patient is doing better. Infectious Disease Department, Dr. Whitney, recommended to remove the PICC line and send it for culture and then put a Prcotor catheter if the blood cultures are negative. This patient should continue with at least 14 days from when the first blood culture drawn is negative with Rocephin.
[2016-09-12] MEDS: PHENERGAN PO PRN (12:48)
--- NOTE | 2016-09-12 14:43 | PROGRESS NOTE ---
DATE: 09/12/2016 PRESENT ILLNESS: The patient has a Klebsiella bacteremia. It could have arisen from a Klebsiella pneumonia. Alternatively it could have originated from her PICC that she had in her arm with then hematogenous involvement of the lung. The patient today complains that her mouth is very sore and she believes that it is due to candidiasis, even though she is getting IV Diflucan. MEDICATIONS: The patient is getting Rocephin and as mentioned above, she also is on fluconazole. PHYSICAL EXAMINATION: Vital Signs: Temperature is 98.1 degrees, pulse 79, respirations 18, blood pressure 118/72. General: This appears to be a malnourished, middle-aged female. She is in no acute distress. She looks chronically ill. Ears, nose, and throat: The patient's mucosa in her mouth was red and patient said it felt very sore to her. Lungs: Clear to auscultation. Cardiovascular: Regular heart rate. Abdomen: Soft and nontender. The patient had a PICC in her arm which has been removed. The site is not erythematous or swollen. LABORATORY AND X-RAY: The patient's CBC today shows a white count of 3,050, hemoglobin 8, and platelet count 263,000. Creatinine is 0.3. GFR is greater than 60. ASSESSMENT AND PLAN: The patient has Klebsiella bacteremia and pneumonia. I put a consult in for nutritional parenteral home care to supply Rocephin 1 g IV for a total of 15 days. Nutritional parenteral home care is also taking care of the patient's nutrition needs including IV hyperalimentation and tube feeding. The nutritional aspect of her care is under the direction of Dr. Renteria. The patient's last blood cultures are sterile. The patient's catheter tip from her PICC culture is not yet returned. The plan is to have Dr. Lisa put in a Proctor catheter and then most likely the patient will be discharged tomorrow. I have requested that she see me in my office in 2 weeks. The patient may have Madai mucositis involving the mouth and tongue. I started the patient on Mycostatin 5 mL swish and swallow 4 times a day and also I have written her for a prescription for the same thing. The patient's morbidities includes that she has GI dysfunction and needs long-term IV access. Also, she currently is getting tube feedings through a feeding tube. She has a factor V deficiency and hypothyroidism. She had a marginally low IgG level was 632 which I doubt is clinically significant but most likely that will be repeated. The patient also has gi tract dysfunction which necessitates continuous churn buttermaker IV access. BRISSA
--- NOTE | 2016-09-12 17:25 | CONSULTATION ---
DATE OF CONSULTATION: 09/12/2016 HISTORY OF PRESENT ILLNESS: Ms. Rachid Alexander is a 50-year-old white female, status post gastric bypass, who has lost too much weight. She is requiring nasogastric tube feeding and also total parental nutrition. Her gastric bypass was done by Dr. Cheney, but she sees Dr. Clement now. She had a PICC line removed today because of worry that it may be infected, and I was called by Dr. Whitney to consider a Proctor or port for possible home TPN. Her blood cultures are pending. PHYSICAL EXAMINATION: General: On exam, Ms. Alexander is cachectic, malnourished, too slim. She has a nasogastric feeding tube in place. She is awake and cooperative and pleasant. HEENT: No jaundice. No oral lesions. Neck: No cervical or supraclavicular lymphadenopathy. Cardiac: Her heart has a regular rate. Lungs: Clear to auscultation and percussion bilaterally. Abdomen: Her abdomen is flat. There is no palpable mass. No costovertebral tenderness. Rectal/Vaginal: Exams were not performed. Extremities: She does have palpable peripheral pulses. She has mild peripheral edema. Neurological: She has no focal deficit. IMPRESSION: Caloric malnutrition in a patient with gastric bypass, requiring nasogastric tube feeding and possibly total parental nutrition. She has had a peripherally inserted central catheter line removed because of a possible infection. Blood cultures are pending. PLAN: Certainly we need to be sure the blood cultures are negative prior to placement of any other intravascular foreign body. It would be nice if her nutrition could all be per her intestines. If she needs home medications or TPN, we can consider placement of a port or Proctor.
[2016-09-12] MEDS: ROCEPHIN 1 GM/NS 50 ML IV SCH (17:46)
[2016-09-12] MEDS: MYCOSTATIN SUSP PO SCH ×2 (17:46→21:04)
[2016-09-12] MEDS: DIFLUCAN 200 MG/NS 100 ML IV SCH (21:02)
[2016-09-12] MEDS: SEROQUEL PO SCH (21:03)
[2016-09-12] MEDS: XANAX PO SCH (21:03)
[2016-09-13] MEDS: NS 1,000 ML IV SCH ×3 (03:00→15:12)
[2016-09-13] MEDS: ATROVENT NEB INH SCH ×4 (03:48→22:47)
[2016-09-13] MEDS: XOPENEX NEB INH SCH ×4 (03:48→22:47)
[2016-09-13] MEDS: DEMEROL IV PRN ×4 (06:26→22:06)
[2016-09-13 06:27] LABS: MANUAL DIFF NEEDED? NO
[2016-09-13] MEDS: SODIUM CHLORIDE 0.9% INJ PRN ×3 (06:27→22:06)
[2016-09-13] MEDS: PHENERGAN IV PRN ×3 (06:27→22:06)
[2016-09-13 06:39] LABS: BASO% 0.6 % (0.0-0.8); EOS# 0.13 X1000 (0.0-0.7); EOS% 4.2 % (0.0-10.0); HEMATOCRIT 26.8 % (37.0-47.0); HEMOGLOBIN 8.4 g/dL (12.0-16.0); LYMPH% 45.2 % (20.5-51.1); MCH 30.8 PG (27-31); MCHC 31.3 g/dL (33-37); MCV 98.2 FL (81-99); MONO# 0.23 X1000 (0.11-0.59); MONO% 7.4 % (1.7-9.3); MPV 11.6 FL (7.4-10.4); NEUT% 42.6 % (42.2-75.2); PLT 315 X1000 (130-400); RBC 2.73 XMIL (4.2-5.4)
[2016-09-13 06:56] LABS: AGAP 9; BUN 8 mg/dL (8-22); CHLORIDE 106 mmol/L (98-107); COSMO 278; POTASSIUM 4.8 mmol/L (3.5-5.1); SODIUM 141 mmol/L (136-145); TCO2 26 mmol/L (25-35)
--- NOTE | 2016-09-13 07:59 | PROGRESS NOTE ---
DATE: 09/13/2016 Ms. Alexander actually underwent a duodenal switch and not a gastric bypass. She is requiring nasogastric tube feeding under the direction of Digna Renteria, her container maker who I spoke with last night. It is felt that she will need a Proctor catheter for possible nutrition, medications and blood draws as an outpatient. Her PICC line from her left arm was just removed yesterday afternoon and it was sent for culture. She has had blood cultures on 09/10/2016 that showed no growth. She has lost a significant amount weight and is cachectic, but recently feels better with nasogastric nutrition. We can proceed with a tunneled catheter when we know that her blood is cleared of any bacteremia. I will place her on the OR schedule for Friday.
[2016-09-13] MEDS: WELLBUTRIN XL PO SCH (08:27)
[2016-09-13] MEDS: ARIXTRA SUBQ SCH (08:28)
[2016-09-13] MEDS: LEXAPRO PO SCH (08:28)
[2016-09-13] MEDS: ZINC SULFATE PO SCH (08:28)
[2016-09-13] MEDS: SYNTHROID IV SCH (08:29)
[2016-09-13] MEDS: SANTYL OINT TOP SCH (08:29)
[2016-09-13] MEDS: SODIUM CHLORIDE 0.9% INJ SCH ×3 (08:29→20:59)
[2016-09-13] MEDS: PROTONIX IV SCH ×2 (08:29→20:59)
[2016-09-13] MEDS: AMITIZA PO SCH (08:29)
[2016-09-13] MEDS: MYCOSTATIN SUSP PO SCH ×4 (08:30→21:00)
[2016-09-13] MEDS: MIRALAX PO SCH (08:30)
[2016-09-13] MEDS: OSCAL 500 + D PO SCH ×3 (08:30→20:59)
[2016-09-13] MEDS: PHENERGAN PO PRN (11:23)
--- NOTE | 2016-09-13 14:24 | PROGRESS NOTE ---
DATE: 09/13/2016 HISTORY OF PRESENT ILLNESS: Patient has a Klebsiella bacteremia which either arose from pneumonia or it arose from the patient's PICC and caused a hematogenous pneumonia as well. The patient also had a sore mouth yesterday, which I thought could be due to Madai mucositis, even though she is on fluconazole. MEDICATIONS: 1. The patient is on Rocephin. This is day 4 of Rocephin. 2. This is day 1 of Mycostatin swish and swallow. PHYSICAL EXAMINATION: Vital Signs: Temperature is 97.9 degrees, pulse 97, respirations 17, blood pressure 97/63. General: The patient looks pale and malnourished. Lungs: Clear to auscultation. Cardiovascular: Regular heart rate. Abdomen: Soft and nontender. Ears, Nose, and Throat: Patient has a feeding tube going down her nose. LABORATORY AND X-RAY: The patient's CBC shows a white count of 3100, hemoglobin 8.4, and platelet count 315,000. Creatinine is 0.4. GFR is greater than 60. Blood and catheter tip cultures are negative. There is no new radiographic study. ASSESSMENT AND PLAN: The patient has Klebsiella bacteremia and pneumonia. The plan is to continue Rocephin. The patient also appears to have Madai mucositis and the plan on that would be to continue her Mycostatin swish and swallow. COMORBIDITIES: She has GI dysfunction, which is going to need long-term IV access for nutrition and also possibly through a feeding tube. The patient has a marginally low IgG level at 632, which I doubt is clinically significant.
--- NOTE | 2016-09-13 15:44 | PROGRESS NOTE ---
DATE: 09/13/2016 SUBJECTIVE: This patient is feeling better. She continues with the jejunal feeding. She states that she has been tolerating p.o. as well. She denies nausea, vomiting. No diarrhea. She is still complaining of edema at the level of the lower extremity and also mild pain. OBJECTIVE: Vital signs: Temperature 97.9, pulse 75, respiratory rate 17, blood pressure 97/68, oxygen saturation 98 on room air. HEENT: Head normocephalic. No trauma. PERRLA. Neck: Supple. No JVD. No masses. Central trachea. Chest: Clear to auscultation. No wheezing. No rales. Cardiovascular: Regular rate and rhythm. No murmurs. No gallops. No rubs. Extremities: 1+ lower extremity edema. Mild tenderness to palpation and mobilization. Neurological examination: The patient is alert and oriented x4. No focal neurological deficits. LABORATORY: WBC 3.1, hemoglobin 8.4, hematocrit 26.8, platelets 315, sodium 141, potassium 4.8, chloride 106, bicarbonate 26, BUN 8, creatinine 0.4, glucose 78, calcium 8. ASSESSMENT AND PLAN: 1. Sepsis secondary to pneumonia. Blood cultures showed Klebsiella pneumonia. This patient is on ceftriaxone. Infectious Disease Department is following this patient, and they have recommended to treat this patient for at least two weeks after having a negative culture result. This patient is getting better. The blood pressure has been stable. 2. Infectious encephalopathy, resolved. 3. Severe protein calorie malnutrition. She is getting jejunostomy feeding. Dr. Renteria is monitoring this patient. 4. Factor V Leiden deficiency with previous deep venous thrombosis. She continues with Arixtra. 5. Hypothyroidism. Continue with Synthroid. 6. Hypokalemia, resolved. 7. Hypocalcemia. This is getting better. Continue to monitor. Overall, this patient is doing better. Infectious Disease Department has recommended to remove the PICC line--that was done yesterday--and place a new line for this patient once the blood cultures have been negative. Surgery Department evaluated this patient to place the new catheter, and this is going to be placed on Friday.
[2016-09-13] MEDS: ROCEPHIN 1 GM/NS 50 ML IV SCH (18:38)
[2016-09-13] MEDS: DIFLUCAN 200 MG/NS 100 ML IV SCH (20:58)
[2016-09-13] MEDS: XANAX PO SCH (20:58)
[2016-09-13] MEDS: SEROQUEL PO SCH (20:59)
[2016-09-14] MEDS: DEMEROL IV PRN ×5 (03:38→21:51)
[2016-09-14] MEDS: PHENERGAN IV PRN ×5 (03:39→21:50)
[2016-09-14] MEDS: SODIUM CHLORIDE 0.9% INJ PRN ×3 (03:39→21:50)
[2016-09-14] MEDS: ATROVENT NEB INH SCH ×4 (03:46→22:51)
[2016-09-14] MEDS: XOPENEX NEB INH SCH ×4 (03:46→22:51)
[2016-09-14] MEDS: NS 1,000 ML IV SCH ×2 (06:24→18:53)
[2016-09-14 06:49] LABS: MANUAL DIFF NEEDED? NO
[2016-09-14 07:11] LABS: AGAP 10; BUN 10 mg/dL (8-22); CALCIUM 8.1 mg/dL (8.8-10.2); CHLORIDE 108 mmol/L (98-107); COSMO 287; POTASSIUM 4.3 mmol/L (3.5-5.1); SODIUM 145 mmol/L (136-145); TCO2 27 mmol/L (25-35)
[2016-09-14 07:13] LABS: BASO% 0.6 % (0.0-0.8); EOS# 0.11 X1000 (0.0-0.7); EOS% 3.3 % (0.0-10.0); HEMATOCRIT 29.4 % (37.0-47.0); LYMPH# 1.32 X1000 (1.2-3.4); LYMPH% 39.2 % (20.5-51.1); MCHC 30.6 g/dL (33-37); MONO# 0.19 X1000 (0.11-0.59); MONO% 5.6 % (1.7-9.3); MPV 11.7 FL (7.4-10.4); NEUT% 51.3 % (42.2-75.2); PLT 352 X1000 (130-400)
[2016-09-14] MEDS: SODIUM CHLORIDE 0.9% INJ SCH ×4 (07:54→21:50)
[2016-09-14] MEDS: SYNTHROID IV SCH (09:25)
[2016-09-14] MEDS: MIRALAX PO SCH (09:25)
[2016-09-14] MEDS: PROTONIX IV SCH ×2 (09:27→21:50)
[2016-09-14] MEDS: ARIXTRA SUBQ SCH (09:33)
[2016-09-14] MEDS: WELLBUTRIN XL PO SCH (09:34)
[2016-09-14] MEDS: ZINC SULFATE PO SCH (09:35)
[2016-09-14] MEDS: LEXAPRO PO SCH (09:35)
[2016-09-14] MEDS: MYCOSTATIN SUSP PO SCH ×4 (09:39→21:52)
[2016-09-14] MEDS: OSCAL 500 + D PO SCH ×3 (09:39→17:26)
[2016-09-14] MEDS: AMITIZA PO SCH (09:40)
--- NOTE | 2016-09-14 14:08 | PROGRESS NOTE ---
DATE: 09/14/2016 SUBJECTIVE: This patient states that she is feeling better. She continues with jejunal feeding. She states that she has been tolerating p.o. as well. She denies nausea, vomiting, diarrhea, or constipation. She has no complaints today. OBJECTIVE: Vital Signs: Temperature 97.3 degrees, pulse 88, respiratory rate 18, blood pressure 110/75, oxygen saturation 98% on room air. HEENT: Head normocephalic. No trauma. PERRLA. Neck: Supple. No JVD. No masses. Central trachea. Chest: Clear to auscultation. No wheezing. No rales. Cardiovascular: RRR. No murmurs. No gallops. No rubs. Extremities: 1+ lower extremity edema. Mild tenderness to palpation and mobilization. Neurological: The patient is alert and oriented x4. No focal neurological deficits. LABORATORY: WBC 3.3, hemoglobin 9, hematocrit 29.4, platelets 352,000. Sodium 145, potassium 4.3, chloride 108, bicarbonate 27, BUN 10, creatinine 0.4, glucose 80, calcium 8.1. ASSESSMENT AND PLAN: 1. Sepsis secondary to pneumonia. Resolved. Blood culture showed Klebsiella pneumonia. This patient is on ceftriaxone. Infectious Disease Department is following this patient and they have recommended to treat this patient for at least 2 weeks after having a negative culture result. This patient is getting better. The blood pressure has been stable. 2. Infectious encephalopathy. Resolved. 3. Severe protein calorie malnutrition. She is getting jejunostomy feeding. Dr. Renteria is taking care of this patient. 4. Factor V Leiden deficiency with previous DVTs. She continues with Arixtra. 5. Hypothyroidism. Continue with Synthroid. 6. Hypokalemia. Resolved. 7. Hypocalcemia. This is getting better. Continue to monitor. Overall this patient is doing better, Infectious Disease Department recommended to remove the PICC line and that was done a couple days ago. She is scheduled to get a new catheter on Friday by Surgery if the blood culture and the culture of the PICC line is negative.
[2016-09-14] MEDS: ROCEPHIN 1 GM/NS 50 ML IV SCH (17:22)
[2016-09-14] MEDS: SANTYL OINT TOP SCH (17:28)
[2016-09-14] MEDS: DIFLUCAN 200 MG/NS 100 ML IV SCH (21:50)
[2016-09-14] MEDS: SEROQUEL PO SCH (21:51)
[2016-09-14] MEDS: XANAX PO SCH (21:51)
[2016-09-15] MEDS: NS 1,000 ML IV SCH ×3 (02:57→16:55)
[2016-09-15] MEDS: XOPENEX NEB INH SCH ×4 (03:25→22:47)
[2016-09-15] MEDS: ATROVENT NEB INH SCH ×4 (03:25→22:47)
[2016-09-15] MEDS: PHENERGAN IV PRN ×5 (04:35→21:10)
[2016-09-15] MEDS: DEMEROL IV PRN ×5 (04:35→21:11)
[2016-09-15] MEDS: SODIUM CHLORIDE 0.9% INJ PRN ×2 (04:36→21:09)
[2016-09-15 06:58] LABS: MANUAL DIFF NEEDED? NO
[2016-09-15 07:12] LABS: BASO% 0.3 % (0.0-0.8); EOS# 0.15 X1000 (0.0-0.7); EOS% 4.7 % (0.0-10.0); HEMATOCRIT 29.1 % (37.0-47.0); HEMOGLOBIN 8.9 g/dL (12.0-16.0); MCHC 30.6 g/dL (33-37); MONO# 0.19 X1000 (0.11-0.59); MPV 11.4 FL (7.4-10.4); PLT 353 X1000 (130-400); RBC 2.97 XMIL (4.2-5.4)
[2016-09-15 07:17] LABS: AGAP 9; BUN 10 mg/dL (8-22); CALCIUM 8.2 mg/dL (8.8-10.2); CHLORIDE 108 mmol/L (98-107); COSMO 285; POTASSIUM 4.5 mmol/L (3.5-5.1); SODIUM 144 mmol/L (136-145); TCO2 27 mmol/L (25-35)
[2016-09-15] MEDS: SODIUM CHLORIDE 0.9% INJ SCH ×4 (08:59→21:09)
[2016-09-15] MEDS: SYNTHROID IV SCH (09:02)
[2016-09-15] MEDS: PROTONIX IV SCH ×2 (09:03→21:09)
[2016-09-15] MEDS: ZINC SULFATE PO SCH (09:04)
[2016-09-15] MEDS: WELLBUTRIN XL PO SCH (09:04)
[2016-09-15] MEDS: OSCAL 500 + D PO SCH ×3 (09:05→16:57)
[2016-09-15] MEDS: AMITIZA PO SCH (09:06)
[2016-09-15] MEDS: MIRALAX PO SCH (09:06)
[2016-09-15] MEDS: LEXAPRO PO SCH (09:06)
[2016-09-15] MEDS: ARIXTRA SUBQ SCH (09:07)
[2016-09-15] MEDS: MYCOSTATIN SUSP PO SCH ×4 (09:08→21:11)
[2016-09-15] MEDS: ROCEPHIN 1 GM/NS 50 ML IV SCH (16:59)
--- NOTE | 2016-09-15 17:06 | PROGRESS NOTE ---
DATE: 09/15/2016 SUBJECTIVE: This patient states that she is feeling fine. She continues with jejunal feedings. She states that she has been tolerating p.o. as well. She denies nausea, vomiting, diarrhea, constipation. She is not complaining of lower extremity swelling as well. OBJECTIVE: Vital Signs: Temperature 97.7 degrees, pulse 80, respiratory rate 20, blood pressure 114/77, oxygen saturation 98 on room air. HEENT: Head normocephalic. No trauma. PERRLA. Neck: Supple. No JVD. No masses. Central trachea. Chest: Clear to auscultation. No wheezing. No rales. Cardiovascular: RRR. No murmurs. Extremities: No edema. No clubbing. No cyanosis. Mild tenderness to palpation and mobilization. Neurological: The patient is alert and oriented x4. No focal neurological deficits. LABORATORY: WBC 3.1, hemoglobin 8.9, hematocrit 29.1. Sodium 144, potassium 4.5, chloride 108, bicarbonate 27, BUN 10, creatinine 0.6, glucose 85, calcium 8.2. ASSESSMENT AND PLAN: 1. Sepsis secondary to pneumonia, resolved. Blood culture showed Klebsiella pneumonia. This patient is on ceftriaxone. Infectious disease department is following this patient and they have recommended to treat this patient for at least 2 weeks after having a negative final blood culture result. This patient is getting better. The blood pressure has been stable. 2. Infectious encephalopathy, resolved. 3. Severe protein calorie malnutrition. She is getting jejunostomy feedings. Dr. Renteria is taking care of this patient. 4. Factor V Leiden deficiency with previous deep vein thromboses. She continues with Arixtra. 5. Hypothyroidism. Continue with Synthroid. PLAN: Overall, this patient is doing much better. Infectious disease department has recommended to remove her previous PICC line and place a new line for long-term treatment. This patient hopefully will get the new IV line tomorrow, if the blood culture and the tip of the PICC line culture are negative.
[2016-09-15] MEDS: SANTYL OINT TOP SCH (17:59)
[2016-09-15] MEDS: SEROQUEL PO SCH (21:09)
[2016-09-15] MEDS: DIFLUCAN 200 MG/NS 100 ML IV SCH (21:09)
[2016-09-15] MEDS: XANAX PO SCH (21:10)
[2016-09-16] MEDS: DEMEROL IV PRN ×4 (02:34→15:01)
[2016-09-16] MEDS: SODIUM CHLORIDE 0.9% INJ PRN ×4 (02:34→15:01)
[2016-09-16] MEDS: PHENERGAN IV PRN ×4 (02:34→15:01)
[2016-09-16] MEDS: XOPENEX NEB INH SCH ×5 (03:35→22:00)
[2016-09-16] MEDS: ATROVENT NEB INH SCH ×5 (03:35→22:00)
[2016-09-16] MEDS: NS 1,000 ML IV SCH (06:30)
[2016-09-16 06:39] LABS: MANUAL DIFF NEEDED? NO
[2016-09-16 07:04] LABS: BASO% 0.3 % (0.0-0.8); EOS# 0.18 X1000 (0.0-0.7); EOS% 5.5 % (0.0-10.0); HEMATOCRIT 27.5 % (37.0-47.0); HEMOGLOBIN 8.4 g/dL (12.0-16.0); LYMPH# 1.35 X1000 (1.2-3.4); LYMPH% 41.2 % (20.5-51.1); MCH 29.8 PG (27-31); MCHC 30.5 g/dL (33-37); MCV 97.5 FL (81-99); MONO# 0.19 X1000 (0.11-0.59); MONO% 5.8 % (1.7-9.3); MPV 11.2 FL (7.4-10.4); NEUT% 47.2 % (42.2-75.2); PLT 339 X1000 (130-400); RBC 2.82 XMIL (4.2-5.4)
[2016-09-16 07:16] LABS: AGAP 9; BUN 11 mg/dL (8-22); CALCIUM 8.4 mg/dL (8.8-10.2); CHLORIDE 105 mmol/L (98-107); COSMO 277; POTASSIUM 4.1 mmol/L (3.5-5.1); SODIUM 140 mmol/L (136-145); TCO2 26 mmol/L (25-35)
[2016-09-16] MEDS: MYCOSTATIN SUSP PO SCH ×3 (08:51→17:00)
[2016-09-16] MEDS: AMITIZA PO SCH (09:00)
[2016-09-16] MEDS: ARIXTRA SUBQ SCH (09:43)
[2016-09-16] MEDS: LEXAPRO PO SCH (09:46)
[2016-09-16] MEDS: MIRALAX PO SCH (09:48)
[2016-09-16] MEDS: OSCAL 500 + D PO SCH ×3 (09:50→13:00)
[2016-09-16] MEDS: WELLBUTRIN XL PO SCH (09:53)
[2016-09-16] MEDS: ZINC SULFATE PO SCH (09:55)
[2016-09-16] MEDS: SODIUM CHLORIDE 0.9% INJ SCH ×3 (10:29→21:38)
[2016-09-16] MEDS: SYNTHROID IV SCH (10:29)
[2016-09-16] MEDS: PROTONIX IV SCH ×2 (10:30→21:38)
[2016-09-16] MEDS ORDERED: MARCAINE 0.25% PF/EPI 1:200,000 ONE (16:09)
[2016-09-16] MEDS ORDERED: HEPARIN ONE ×2 (16:09→16:16)
[2016-09-16] MEDS ORDERED: NS 250 ML ONE (16:09)
[2016-09-16] MEDS ORDERED: DIPRIVAN 1% ONE (17:13)
[2016-09-16] MEDS: MORPHINE ONE ×2 (17:26→17:32)
--- NOTE | 2016-09-16 17:30 | PROGRESS NOTE ---
DATE: 09/16/2016 PRESENT ILLNESS: The patient has a Klebsiella bacteremia and an associated pneumonia and possibly a infected PICC. The patient also appears to have Madai mucositis. MEDICATIONS: This is day 7 of treatment with Rocephin for the Klebsiella bacteremia and day 4 of treatment with Mycostatin swish and swallow for Madai mucositis. PHYSICAL EXAMINATION: Vital Signs: Temperature is 98 degrees, pulse 83, respirations 16, blood pressure 98/56. General: This is a chronically ill-appearing middle-aged female who is in no acute distress. Head/eyes/ears/nose/throat: Her mouth does not show any white patches. She does have a feeding tube in place through the left nostril. Lungs: Clear to auscultation. Cardiovascular: Regular heart rate. Abdomen: Soft and nontender. LAB AND X-RAY: The patient's CBC today had a white count 3200, hemoglobin 8.4 and platelet count 339,000. Patient's creatinine is 0.4 with a GFR of greater than 60.. ASSESSMENT AND PLAN: The patient has Klebsiella bacteremia and pneumonia. My plan would be to continue Rocephin. The patient's peripherally inserted central catheter has been removed. Also I plan to continue Mycostatin swish and swallow for the patient's Madai mucositis. Also I plan to repeat the patient's chest x-ray to check on progress of her pneumonia. PATIENT'S COMORBIDITIES: Include GI dysfunction which necessitates long-term IV access for nutrition and also through the feeding tube. The patient has a marginally low IgG level which clinically probably is not significant.
[2016-09-16] MEDS ORDERED: MORPHINE ONE ×2 (17:44→18:10)
[2016-09-16] MEDS: ROCEPHIN 1 GM/NS 50 ML IV SCH (17:50)
[2016-09-16] MEDS ORDERED: NS 1,000 ML ONE (17:58)
--- NOTE | 2016-09-16 21:36 | Extremity Venous Study ---
PROCEDURE NAME: Venous U/S Bilateral Legs - 09/11/2016 BILATERAL LOWER EXTREMITY VENOUS IMAGING STUDY: REFERRING PHYSICIAN: Gareth Armenta MD INTERPRETING PHYSICIAN: Barney Araya MD STATE FI[employer] MARSHAL: Rao HISTORY: Patient is a followup from a study done on 08/16/2016 which revealed acute deep venous thrombosis in the left superficial femoral, popliteal, gastrocnemius and peroneal veins. FINDINGS: Bilateral lower extremity images accomplished. The common femoral, superficial femoral, deep femoral, popliteal, posterior tibial, peroneal, and greater saphenous veins are imaged bilaterally. The Doppler is used to evaluate the veins for spontaneity, phasicity, respiratory and distal augmentation. There are some thick choe to the superficial femoral vein on the right consistent with chronic DVT. There is DVT that appears chronic in the left popliteal. The left superficial femoral vein is now noncompressible. All other veins are compressible as well. INTERPRETATION: Chronic DVT in the left popliteal. The superficial femoral clot apparently is resolved. There is chronic change in the right superficial femoral vein as well. No acute DVT is identified.
[2016-09-16] MEDS: DIFLUCAN 200 MG/NS 100 ML IV SCH (21:37)
--- NOTE | 2016-09-16 23:26 | OPERATIVE NOTE ---
PROCEDURE DATE: 09/16/2016 PREOPERATIVE DIAGNOSIS: Caloric malnutrition status post duodenal switch for weight loss. POSTOPERATIVE DIAGNOSIS: Caloric malnutrition status post duodenal switch for weight loss. PRINCIPAL PROCEDURE: Right internal jugular single-lumen Proctor catheter using ultrasound and fluoroscopy. SURGEON: Antonette Lisa MD CREDIT ASSOCIATE: steff Brady. ANESTHESIA: General using LMA in addition to local anesthetic. ESTIMATED BLOOD LOSS: 25 mL. DRAINS: None. INDICATIONS: Ms. Rachid Alexander is a 50-year-old white female who has undergone a duodenal switch for weight loss. She has had problems with too much weight loss and now has caloric malnutrition. She is being fed with a nasogastric tube, and she also needs TPN to help with nutrition and we were asked to place a Proctor catheter. DESCRIPTION OF PROCEDURE: The patient was brought to the operating room, placed supine, received general anesthesia, and was ventilated using LMA. Her right neck, shoulder, and anterior chest were prepped and draped within the sterile field. We used local anesthetic at our incision sites. We began the procedure by accessing her internal jugular vein using ultrasound and an 18-gauge needle. Under ultrasound guidance, I placed 18-gauge needle into her right internal jugular vein. We placed a guidewire through this needle into the right side of the heart. The position of the guidewire was checked using fluoroscopy. We made a counter incision on the anterior right chest and we tunneled this 9.6-[place] single-lumen Proctor catheter from the chest incision to the neck incision making sure that the cuff was in the subcutaneous tissue. Over the guidewire we placed a dilator and sheath and we removed the guidewire and dilator and through the sheath, we placed the distal end of the single-lumen Proctor catheter and directed it into the superior vena cava. The sheath was peeled away. The catheter was functioning well and was flushed with heparin saline. We secured the catheter at its exit site with a 3-0 nylon stitch and we closed the small incision at her neck with a 4-0 Monocryl stitch. Dressings were applied. She tolerated the procedure well with plans for her to go the recovery room and then be readmitted to the floor.
[2016-09-17] MEDS: MYCOSTATIN SUSP PO SCH (00:03)
[2016-09-17] MEDS: SEROQUEL PO SCH (00:03)
[2016-09-17] MEDS: XANAX PO SCH (00:04)
[2016-09-17] MEDS: TYLENOL PO PRN ×2 (02:13→09:44)
[2016-09-17] MEDS: NS 1,000 ML IV SCH (02:26)
[2016-09-17] MEDS: ATROVENT NEB INH SCH (03:36)
[2016-09-17] MEDS: XOPENEX NEB INH SCH (03:36)
[2016-09-17] MEDS: PHENERGAN IV PRN (06:14)
[2016-09-17] MEDS: SANTYL OINT TOP SCH ×2 (07:50→09:00)
[2016-09-17 07:57] VITALS: BP 104/64
[2016-09-17] MEDS: LEXAPRO PO SCH (08:27)
[2016-09-17] MEDS: ARIXTRA SUBQ SCH (08:27)
[2016-09-17] MEDS: WELLBUTRIN XL PO SCH (08:27)
[2016-09-17] MEDS: ZINC SULFATE PO SCH (08:27)
[2016-09-17] MEDS: AMITIZA PO SCH (08:27)
[2016-09-17] MEDS: MIRALAX PO SCH (08:28)
[2016-09-17] MEDS: OSCAL 500 + D PO SCH (08:28)
--- NOTE | 2016-09-17 08:44 | Diag Imaging Result Document ---
PROCEDURE NAME: CHEST-2 VIEWS - 09/17/2016 CHEST X-RAY, 2 VIEWS: COMPARISON: 09/10/2016. FINDINGS: There is a new right-sided tunneled central venous catheter with the tip at the lower SVC. Stable feeding tube with the tip in the upper abdomen. There are grossly stable bilateral lower lobe infiltrates. No new infiltrates. Heart size and pulmonary vascularity is normal. No pneumothorax or pleural effusion. IMPRESSION: Catheter exchange. Otherwise, no change from prior.
[2016-09-17] MEDS: SYNTHROID IV SCH (09:00)
[2016-09-17] MEDS: PROTONIX IV SCH (09:00)
[2016-09-17] MEDS: SODIUM CHLORIDE 0.9% INJ SCH (09:00)
[2016-09-17] MEDS: PHENERGAN PO PRN (09:44)
[2016-09-17] MEDS ORDERED: LR 1,000 ML ONE (09:49)
[2016-09-17] MEDS ORDERED: ZOFRAN ONE (09:49)
[2016-09-17] MEDS ORDERED: ANESTHESIA PB SET 88 IN 5742 ONE (09:49)
--- NOTE | 2016-09-17 11:36 | DISCHARGE SUMMARY ---
ADMISSION DATE: 09/05/2016 DISCHARGE DATE: 09/16/2016 CONSULTATIONS: Dr. Karlo Whitney with Infectious Disease, Dr. Digna Renteria with Gastroenterology, Dr. Amrita Suarez with Neurology, Dr. Carmina Black with Oncology, and Dr. Antonette Lisa with General Surgery. PERTINENT PROCEDURES: 1. Head CT, which was negative. 2. Carotid Dopplers showed no significant plaque disease identified. There is antegrade vertebral flow bilaterally. 3. Abdomen x-ray was nonspecific. 4. Line placement by Dr. Lisa 09/16/2016. DISCHARGE DIAGNOSES: 1. Sepsis secondary to pneumonia, resolved. 2. Infectious encephalopathy, resolved. 3. Severe protein calorie malnutrition. Patient getting jejunostomy feedings per Dr. Renteria. She is followed by [facility] in [place]. 4. Factor V Leiden deficiency with previous deep vein thrombosis. Continue Arixtra. 5. Hypothyroidism. Continue Synthroid. 6. Klebsiella bacteremia, which either arose from pneumonia or patient's PICC line. That line has been discontinued and the patient has negative blood cultures. She is getting another IV access today by Dr. Lisa, at which time she will be discharged home. HOSPITAL COURSE: Briefly, Ms. Aziza Alexander is a 50-year-old female with a past medical history of gastric bypass, severe protein calorie malnutrition, factor V Leiden deficiency, recurrent DVTs, and asthma. On the day of admission, patient was seen normal about 6:30 by her . He went to work and called her around noon. She did not seem to be having normal conversation. He came home and found that she was confused, lethargic, and had a fever of 104 prior to taking Tylenol. He also stated that she had some slurred speech with difficulty getting out words, general weakness, and body aches. On admit, her NIH stroke scale was about a [address] was negative for any acute findings. She had been on Arixtra for her DVT. No signs of bleeding from her head CT. She had seen her primary care physician the day before. There were no changes made to her medication. It was a routine visit for headache and feeling weak. On admission, she was afebrile after taking Tylenol, but per 's report, it was 104, then it was back to 101.1. She was tachycardic in 110s to 120s. Her blood pressure has been anywhere from the 80s to 90s systolically. Her white count was 1.85. She was admitted to the ICU. She appeared to be septic and she was started on the sepsis protocol and aggressively IV hydrated, although she did have a normal lactate and her urinalysis was negative, so she was treated for pneumonia with sepsis. Also, given her severe protein calorie malnutrition, Dr. Renteria follows her for that. She has been receiving tube feedings through a [facility]. The patient was initially admitted for stroke-like symptoms with a negative head CT on anticoagulation. She was started on IV antibiotics. Her carotid Dopplers were negative. Dr. Suarez felt that the altered awareness was secondary to her fever and medical illness. The patient did become alert, attentive, and appropriate. He did not have any more suggestions from a neurological standpoint. Dr. Karlo Whitney with Infectious Disease was called in. He agreed with meropenem. He discontinued the Levaquin and vancomycin pending cultures. Dr. Renteria was also consulted. She wanted to continue tube feedings as she tolerates them. Dr. Carmina Black was also asked to see the patient in reference to her factor V deficiency. She continued the Arixtra and decreased the dose to 5 mg daily, since she was at a lower weight, and continued to monitor for any signs of bleeding. The patient's blood culture did grow out Klebsiella pneumoniae and her antibiotic was switched to Rocephin. Her original PICC line was discontinued. She will continue her Rocephin on an outpatient basis as well as her feedings on an outpatient basis. The patient continued to improve. She continued with her jejunal feedings. She was tolerating those and she had been tolerating a GI soft diet as well. She has not had any nausea, vomiting, diarrhea, constipation, or any signs of any bleeding. Patient is receiving a new PICC line today from Dr. Lisa so she can continue with IV antibiotics. We did recommend rehab; however, patient refused. She will go back home today after her line placement. VITAL SIGNS AT TIME OF DISCHARGE: Temperature is 98 degrees, heart rate 83, respirations 16, blood pressure is 98/56, O2 is 99% on room air. DISCHARGE MEDICATIONS: As per Dr. Penn. Please see EMR. FOLLOWUP: The patient is being discharged home with home health and [facility]. She will need to follow up with Dr. Karlo Whitney in 2 weeks as well as follow up with Dr. Renteria. Patient can return to the ED for any worsening of symptoms. DISCHARGE TIME: Greater than 35 minutes. Dictated by RUEL Up for Gareth Armenta MD
== END 2016-09-17 11:41 | disposition home health service (06) | DRG 314 ==
LOC: ED 14:51 → ICU 14:52 → 3N 09-07 16:53
PROVIDERS: ATTEND Internal Medicine
PROC: 3E0G76Z Introduction of Nutritional Substance into Upper GI, Via Natural or Artificial Opening (ICD-10-PCS; principal; 2016-09-06)
PROC: 02HV33Z Insertion of Infusion Device into Superior Vena Cava, Percutaneous Approach (ICD-10-PCS; 2016-09-16)
PROC: B5181ZA Fluoroscopy of Superior Vena Cava using Low Osmolar Contrast, Guidance (ICD-10-PCS; 2016-09-16)
DX: T80.211A Bloodstream infection due to central venous catheter, initial encounter (principal); A41.4 Sepsis due to anaerobes; E43 Unspecified severe protein-calorie malnutrition; G93.41 Metabolic encephalopathy; J15.0 Pneumonia due to Klebsiella pneumoniae; R64 Cachexia; B37.0 Candidal stomatitis; D68.51 Activated protein C resistance; R65.20 Severe sepsis without septic shock; I82.511 Chronic embolism and thrombosis of right femoral vein; I82.533 Chronic embolism and thrombosis of popliteal vein, bilateral; E51.9 Thiamine deficiency, unspecified; E53.0 Riboflavin deficiency; E03.9 Hypothyroidism, unspecified; F41.9 Anxiety disorder, unspecified; J45.909 Unspecified asthma, uncomplicated; M19.90 Unspecified osteoarthritis, unspecified site; K21.9 Gastro-esophageal reflux disease without esophagitis; N18.9 Chronic kidney disease, unspecified; D50.9 Iron deficiency anemia, unspecified; E87.6 Hypokalemia; E53.8 Deficiency of other specified B group vitamins; E50.9 Vitamin A deficiency, unspecified; E53.1 Pyridoxine deficiency; E54 Ascorbic acid deficiency; E55.9 Vitamin D deficiency, unspecified; E56.0 Deficiency of vitamin E; E61.0 Copper deficiency; E59 Dietary selenium deficiency; E60 Dietary zinc deficiency; Z87.11 Personal history of peptic ulcer disease; Z79.02 Long term (current) use of antithrombotics/antiplatelets; Z79.899 Other long term (current) drug therapy; Z80.1 Family history of malignant neoplasm of trachea, bronchus and lung; Z83.3 Family history of diabetes mellitus; Z87.891 Personal history of nicotine dependence; Z86.718 Personal history of other venous thrombosis and embolism; Z98.84 Bariatric surgery status
CPT/HCPCS: 51702; 70450; 71020; 74000; 76000; 77001; 80048; 80053; 80061; 80076; 81001; 82040; 82330; 82784; 83605; 83721; 83735; 84100; 84134; 84425; 84630; 85025; 85610; 85730; 86038; 87040; 87070; 87077; 87186; 87804; 92523; 93880; 93970; 94640; 94760; 94761; 94762; 94799; 96361; 96365; 96366; 96367; C1751; C9113; G0480; J0610; J0696; J1450; J1644; J1652; J2175; J2185; J2270; J2370; J2405; J2550; J3370; J3480; J7030; J7040; J7050; J7120; P9612; 80324; 80345; 80346; 80349; 80353; 80358; 80361; 80365; 83992; 92610-GN; 97116-GP; 97530-GP; 99285-25; S0164

== ENCOUNTER 2018-10-30 08:31 | Inpatient (IN) ==
[2018-10-30 09:57] LABS: BASO# 0.02 X1000 (0.0-0.2); BASO% 0.4 % (0.0-0.8); EOS% 1.9 % (0.0-10.0); HEMATOCRIT 30.8 % (37.0-47.0); HEMOGLOBIN 9.6 g/dL (12.0-16.0); LYMPH# 0.82 X1000 (1.2-3.4); LYMPH% 15.4 % (20.5-51.1); MCH 26.1 PG (27-31); MCHC 31.2 g/dL (33-37); MCV 83.7 FL (81-99); MONO% 3.8 % (1.7-9.3); MPV 11.4 FL (7.4-10.4); NEUT# 4.19 X1000 (1.4-6.5); NEUT% 78.5 % (42.2-75.2); PLT 365 X1000 (130-400); RBC 3.68 XMIL (4.2-5.4); RDW 15.3 % (11.5-14.5); WBC 5.33 X1000 (4.8-10.8)
[2018-10-30 10:17] LABS: AGAP 8; ALB/GLOB RATIO 1.1; ALBUMIN 3.4 g/dL (3.5-5.0); ALKALINE PHOSPHATASE 167 U/L (32-104); BUN 6 mg/dL (8-22); CALCIUM 7.8 mg/dL (8.8-10.2); CHLORIDE 106 mmol/L (98-107); COSMO 277; CREATININE 0.6 mg/dL (0.5-0.9); ESTIMATED GFR > 60; GLUCOSE 91 mg/dL (70-104); GOT 18 U/L (10-30); GPT 30 U/L (10-36); POTASSIUM 4.1 mmol/L (3.5-5.1); SODIUM 140 mmol/L (136-145); TCO2 26 mmol/L (25-35); TOTAL PROTEIN 6.6 g/dL (6.3-8.3)
--- NOTE | 2018-10-30 10:17 | Diag Imaging Result Doc PS360 ---
EXAM: CHEST-2 VIEWS 10/30/2018 HISTORY: fever TECHNIQUE: PA and lateral chest COMMENT: Compared to 05/11/2018 the platelike atelectasis which was present over the left hemidiaphragm previously has resolved. The heart size and pulmonary vascularity are within normal limits. There is some minimal subsegmental atelectasis in the lingula which was not present previously. Otherwise there has been no significant change. IMPRESSION: Minimal lingular atelectasis. Electronically signed by Marbin Danielle 10/30/2018 10:15 AM
--- NOTE | 2018-10-30 10:18 | Diag Imaging Result Doc PS360 ---
EXAM: KUB ABDOMEN 10/30/2018 HISTORY: pain TECHNIQUE: KUB COMMENT: There is an apparent mesh over the anterior upper abdomen. There are suture lines in the left upper quadrant and right lateral abdomen. There is an inferior vena cava filter. There is a large amount of stool present in the colon including the rectosigmoid. There is no evidence of small bowel dilatation organomegaly mass or gastric distention. Compared to 12/22/2017 the appearance of the abdomen is similar. IMPRESSION: Constipation. Electronically signed by Marbin Danielle 10/30/2018 10:16 AM
[2018-10-30 10:36] LABS: URINE SOURCE CLEAN CATCH
[2018-10-30] MEDS ORDERED: NORCO-5 PO ONE (10:38)
[2018-10-30 10:55] LABS: BILIRUBIN URINE NEGATIVE (NEGATIVE); BLOOD URINE NEGATIVE (NEGATIVE); COLOR YELLOW; GLUCOSE URINE NEGATIVE (NEGATIVE); KETONE URINE NEGATIVE (NEGATIVE); LEUKOCYTES URINE NEGATIVE (NEGATIVE); NITRITE URINE NEGATIVE (NEGATIVE); PH URINE 6.5; PROTEIN URINE NEGATIVE (NEGATIVE); SP GRAVITY URINE 1.016; TURBIDITY URINE CLEAR (CLEAR); UROBILINOGEN URINE NORMAL (NORMAL)
[2018-10-30 10:56] LABS: UR EPITHELIAL CELLS <10 /HPF (<10); URINE BACTERIA NEGATIVE /HPF; URINE RBC <10 /HPF (<10); URINE WBC <10 /HPF (<10)
[2018-10-30] MEDS ORDERED: CLINDAMYCIN IV ONE (12:34)
[2018-10-30] MEDS ORDERED: CLINDAMYCIN 300 MG in NS 50 ML IV ONE (12:40)
[2018-10-30] MEDS ORDERED: TORADOL IV ONE (13:04)
--- NOTE | 2018-10-30 13:42 | PROVIDER DOCUMENTATION ---
This chart was entered by Eleni Lisa Scribe, acting as scribe for Benny Blackman DO. HPI-General Adult - General Chief Complaint: Fever Stated Complaint: HOLE IN PROCTOR LINE,FEVER Time Seen by Provider: 10/30/18 08:50 Source: patient, family () Allergies/Adverse Reactions: Patient Allergies Allergy/AdvReac Type Severity Reaction Status Date / Time No Known Allergies Allergy Verified 10/30/18 08:59 Home Medications: Home Medication List Medication Instructions Recorded Confirmed Last Taken Type Alprazolam [Xanax] 2 mg PO HS #30 tablet 09/16/16 06/22/18 06/21/18 21:00 Rx Escitalopram Oxalate [Lexapro] 20 mg PO DAILY 10/02/17 06/22/18 06/21/18 08:00 History Bupropion HCl [Wellbutrin Xl] 300 mg PO QAM 10/13/17 06/22/18 06/21/18 08:00 History Vitamin A 2,400 mcg PO DAILY 12/17/17 06/22/18 06/21/18 08:00 History Famotidine/Ca Carb/Mag Hydrox 1 each PO BID 04/20/18 06/22/18 06/21/18 21:00 History [Pepcid Complete Tablet Chew] Esomeprazole Magnesium [Nexium] 40 mg PO BID #60 capsule. 04/24/18 06/22/18 06/21/18 21:00 Rx Folic Acid 1 mg PO DAILY #30 tab 04/24/18 06/22/18 06/21/18 08:00 Rx Iron Carbonyl/Ascorbic Acid 1 ea PO BID #60 tab 04/24/18 06/22/18 06/21/18 21:00 Rx [Icar-C] Levothyroxine [Synthroid] 125 microgm PO QAM #30 tab 04/24/18 06/22/18 06/21/18 08:00 Rx Quetiapine Fumarate [Seroquel] 200 mg PO HS #30 tab 04/24/18 06/22/18 06/21/18 21:00 Rx Zinc Sulfate 220 mg PO DAILY #30 cap 04/24/18 06/22/18 06/21/18 08:00 Rx Calcium Carbonate/Vitamin D3 1 each PO DAILY 06/18/18 06/22/1818 08:00 History [Oscal 500 + D] Cholecalciferol (Vitamin D3) 2,000 unit PO DAILY 06/18/18 06/22/18 06/21/18 08:00 History [Vitamin D3] Cyanocobalamin (Vitamin B-12) 5,000 mcg PO DAILY 06/18/18 06/22/18 06/21/18 08:00 History [Cyanocobalamin] Docusate Sodium [Colace] 1 dose PO PRN PRN 06/18/18 06/22/18 06/21/18 08:00 History Fluconazole [Diflucan] 100 mg PO DAILY 06/18/18 06/22/18 06/21/18 08:00 History Fondaparinux [Arixtra] 1 dose SQ DAILY 06/18/18 06/22/18 06/21/18 08:00 History Hydrocortisone 10 mg PO BID 06/18/18 06/22/18 06/21/18 21:00 History Magnesium Cl D.r. [Slow-Mag] 1 tab PO DAILY 06/18/18 06/22/18 06/21/18 08:00 History Sucralfate [Carafate] 1 gm PO BID 06/18/18 06/22/18 06/21/18 21:00 History TPN Electrolytes 2,000 ml IV DAILY 06/18/18 06/22/18 06/21/18 08:00 History Zinc 50 mg PO DAILY 06/18/18 06/22/18 06/21/18 08:00 History - History of Present Illness -Gen Adult Nature of Presenting Problems: 52 yowf presents to the ed with c/o fever (last night 102.5) for 2 weeks and has been treating with OTC medications. pt has a central line in rt chest and has noted a split in the tubing of the catheter. pt has Proctor in place and has been using central line to give TPA. pt sts has not been able to give TPA since 1 week prior and last meal was last night. pt sts she called dr newsome (GI) last night and was tolds to come to ed Location of Pain/Injury: reports: none Pain Radiation: reports: no radiation Quality of Pain: reports: none Severity: reports: mild Onset/Duration: reports: other (2 weeks of fever) Timing: reports: intermittent Context/Activities at Onset: reports: light activity Modifying Factors: improves with: analgesics Associated Symptoms: reports: fever/chills. denies: anxiety, arm pain, back/neck pain, chest pain, cough, dizziness, nausea, shortness of breath, vomiting, weakness Similar Symptoms Previously?: Yes Recently seen or treated by another doctor?: No Review of Systems - Adult - REVIEW OF SYSTEMS - ADULT Constitutional: reports: see HPI, chills, fever Eyes: reports: no symptoms reported Ears, Nose, Mouth & Throat: reports: no symptoms reported Cardiovascular: denies: chest pain, palpitations Respiratory: denies: cough, wheezing Gastrointestinal: reports: no symptoms reported Genitourinary: reports: other (left CVA tenderness). denies: dysuria, flank pain, frequent UTI's Musculoskeletal: reports: no symptoms reported Integumentary: reports: no symptoms reported Neurological: denies: dizziness/vertigo, headache/migraines Psychiatric: reports: no symptoms reported Endocrine: reports: no symptoms reported Hematologic/Lymphatic: reports: no symptoms reported Allergic/Immunologic: reports: no symptoms reported All Other Systems: Reviewed and Negative Past History - Adult - PAST MEDICAL HISTORY-ADULT Review of Records: reports: Nursing Assessment Review, Medications Reviewed Major Childhood Illnesses: reports: denies history Cardiovascular: reports: other (Factor V Leiden) Respiratory: reports: asthma Gastrointestinal: reports: GERD, ulcer Obstetrical/Gynecological: reports: denies history Genitourinary: reports: denies history Musculoskeletal: reports: arthritis, chronic pain Hand Dominance: Right Handed Neurological: reports: CVA, stroke deficits (memory) Psychiatric: reports: anxiety Endocrine/Immune: reports: thyroid disorder Other Conditions: reports: denies history - PRIOR SURGERIES/PROCEDURES Surgical/Procedure History: reports: appendectomy, cholecystectomy, tonsillectomy, hernia repair, orthopedic (extremity) (L ACL repair), gastric bypass (x 2) - IMMUNIZATION STATUS Childhood Immunizations: See Nurse Assessment Flu Vaccine: See Nurse Assessment - FAMILY HISTORY Family History: reviewed, not pertinent - SOCIAL HISTORY Smoking: quit less than 1 year Substance Use: denies Living Situation: family Physical Exam-General - PHYSICAL EXAM-ADULT Initial Vital Signs Reviewed: Yes - CONSTITUTIONAL General Appearance: alert, no apparent distress, thin - EYES Eyes: PERRL/EOMI, pale conjunctivae - HEAD, EARS, NOSE, MOUTH & THROAT HENMT: TMs normal, maxillary tenderness (rt sided). negative: moist mucous membranes (dry) - NECK Neck: full range of motion, normal inspection. negative: carotid bruit - RESPIRATORY Respiratory: chest non-tender, lungs clear, normal breath sounds - CARDIOVASCULAR Cardiovascular: normal peripheral pulses, regular rate, rhythm, no edema, no JVD , systolic murmur - GASTROINTESTINAL (ABDOMEN) Abdominal Exam: normal bowel sounds, soft, no organomegaly, hernia - LYMPHATIC Lymphatic: no adenopathy - MUSCULOSKELETAL Back Exam: normal inspection, CVA tenderness (left), vertebral tenderness (L3 L4 tenderness to palpation) Extremity: normal range of motion, non-tender, normal inspection, no pedal edema , no calf tenderness, normal capillary refill, pelvis stable - SKIN Integumentary: normal color, normal turgor, warm/dry - NEUROLOGIC Neurologic: grossly normal, no motor/sensory deficits - PSYCHIATRIC Psych/Mental Status: normal mood/affect, normal thought content, normal thought process, oriented x 3 Progress - PLAN OF CARE/RESULTS Progress/Plan/Lab Results: Vital Signs - 8 hr 10/30/18 08:34 Temperature 99.2 F Pulse Rate 92 H Respiratory Rate 18 Blood Pressure 132/79 O2 Sat by Pulse Oximetry 100 Orders Category Date Time Status CHEST-2 VIEWS [RAD] Stat Exams 10/30/18 09:29 Ordered KUB ABDOMEN [RAD] Stat Exams 10/30/18 09:29 Ordered BLOOD CULTURE [BLDCUL] Stat Lab 10/30/18 09:29 Uncollected CBC WITH ELECTRONIC DIFF [HEME] Stat Lab 10/30/18 08:55 Results COMPREHENSIVE METABOLIC PANEL [CHEM] Stat Lab 10/30/18 08:55 Received UA NIMS W/REFLEX CULT [URINALYSIS] Stat Lab 10/30/18 09:29 Uncollected Result Diagrams: 10/30/18 08:55 10/30/18 08:55 - REASSESSMENT Reassessment #1 Time Reassessed: 11:54 (pt is resting in bed) Status: improving Reassessment #2 Time Reassessed: 12:46 Status: unchanged - CONSULTS/PCP/HOSPITALIST Notification #1 *Consult/PCP/Hospitalist*: dr roman Time Discussed: 11:54 (do not use port and f/u in dr roman office to fic central line) Reason/Comments: phone consult Consult Disposition: F/U in office #2 Consult: dr jessie bernabe Time Discussed: 12:47 Reason/Comments: called back to discuss pt further #3 Consult: hospitalist dr brown Time Discussed: 13:22 Reason/Comments: cracked hitman cath Consult Disposition: Admit Departure - Departure Date of Disposition Decision: 10/30/18 Time of Disposition Decision: 13:23 DIAGNOSIS: Proctor catheter dysfunction Qualifiers: Encounter type: initial encounter Qualified Code(s): T82.514A - Breakdown (mechanical) of infusion catheter, initial encounter Fever Qualifiers: Fever type: unspecified Qualified Code(s): R50.9 - Fever, unspecified Anemia Qualifiers: Anemia type: unspecified type Qualified Code(s): D64.9 - Anemia, unspecified Disposition: ADMITTED INPATIENT 09 Certified Medical Emergency: Emergent Condition: Stable Referrals and Follow-Ups: None,PCP [Primary Care Provider] - - Critical Care Note This patient required my direct & personal management of CC.: No Attestation - Physician/ SHREYA Attestation Patient care was provided by Advanced Practice Provider:: No The physician spent face to face time with patient:: Yes Advanced Practice Provider documentation review:: Supervising physician onsite and consulted in the evaluation and care of this patient. The physician did have a face to face encounter with the patient. This chart was documented by the indicated scribe, (Eleni Lisa Scribe) and accurately reflects the services I performed and decisions made by me, Benny Blackman DO, as attested by the provider's signature.
--- NOTE | 2018-10-30 14:48 | HISTORY AND PHYSICAL ---
PRIMARY CARE PHYSICIAN: New Lord MD CHIEF COMPLAINT: Intermittent fevers for 2 weeks stating that last night her fever was 102.5. She has noticed a crack in the tubing of her Proctor catheterization that she has to receive TPN, and has not been able to receive TPN for approximately 1 week and so she came in for evaluation. On arrival, she had a temperature of 99.2 degrees. No white blood cell count of 5.33. There is noted a very small crack at the end of the catheter where the access to plug up her tPA would be. The ER physician spoke with surgery on-call, who wants her to be admitted and they will remove her Proctor cath so she will be admitted for further evaluation and treatment. PAST MEDICAL HISTORY: Factor 5 Leiden GERD Arthritis CVA Anxiety disorder Hypothyroidism Adrenal insufficiency Malabsorption on chronic TPN Osteoporosis Vitamin D deficiency Anemia of chronic disease Recurrent bacteremia PAST SURGICAL HISTORY: Appendectomy, cholecystectomy, tonsillectomy, hernia repair, left 0ACL repair, and gastric bypass x2. FAMILY HISTORY: Reviewed and noncontributory. SOCIAL HISTORY: She currently lives with family. Denies any tobacco, alcohol or illicit drug use. ALLERGIES: She has no known drug allergies. HOME MEDICATIONS: A current list will need to be obtained and reconciled, reviewed and restarted as appropriate. I will place an order for nursing to update and confirm home medications. LABORATORY DATA: White blood cell count of 5.33, hemoglobin 9.6, hematocrit 30.8, and platelets 365,000. Sodium 140, potassium 4.1, chloride 106, CO2 26, BUN of 6, creatinine 0.6, glucose 91. Urinalysis was negative. Chest x-ray showed minimal lingular atelectasis and abdomen x-ray showed constipation. REVIEW OF SYSTEMS: She has had intermittent fevers. Denied any chills, blurred vision, dizziness, chest pain, coughing, or shortness of breath. She denied any abdominal pain, constipation, diarrhea, burning or hurting with urination. PHYSICAL EXAMINATION: On arrival, she had a temperature of 99.2 degrees, pulse 92, respirations 18, blood pressure 132/79 and saturating 100% on room air. GENERAL: This is a 52-year-old female who is sitting in the bed and answers questions appropriately. HEENT: Normocephalic, atraumatic. Normal ENT inspection. Oropharynx and nares are clear. EYES: Pupils are equal, round, and reactive to light and accommodation. Extraocular movements are intact. NECK: Normal on inspection. Normal range of motion. LUNGS: Clear to auscultation bilaterally with equal lung expansion and chest wall movement. HEART: Regular rate and rhythm. No murmurs, rubs, or gallops. ABDOMEN: Soft, nontender, and nondistended. Bowel sounds are present x4 quadrants. MUSCULOSKELETAL: She has 5/5 strength x4 extremities. NEUROLOGICAL: The cranial nerves 2-12 appear grossly intact. ASSESSMENT: 1. Proctor catheter dysfunction with crack noted in tubing. 2. Intermittent fevers. 3. Adrenal insufficiency 4. Malabsorption on chronic TPN 5. Hypothyroidism 6. Anemia of chronic disease 7. Vitamin D deficiency 8. Anxiety disorder 9. Factor 5 Leiden deficiency PLAN: She is being admitted to the medical unit. We will consult Surgery to remove her current Proctor catheter and for possible placement of another one. Place her on clindamycin 600 mg IV q.6, vancomycin per pharmacy protocol. Blood cultures x2 are pending. Place her on a healthy heart diet. Recheck a CBC and BMP in the morning. Nursing again to update and confirm home medications. Further orders after being seen by attending and tanning consultant. Dictated by RUEL Shaver for Mattie Medina MD cc: RUEL Shaver MD I performed a face to face encounter on the patient . I reviewed all labs and imaging. I agree with the H&P as dictated. presented to the ER with a chief complaint of a cracked Proctor catheter tubing. She also reported having intermittent fevers for the past several days. In the ER, she was noted to have a low grade fever. On exam, the patient is alert and oriented x4. Her breath sounds are clear to auscultation bilaterally. No peripheral edema noted in her lower extremities. The patient will be admitted with a diagnosis of Proctor catheter malfunction and fevers. Will order blood cultures and start broad spectrum antibiotics. The patient will be made NPO for now until the catheter is removed by the general surgeon. Will review and resume the patient's home medications as soon as the list is updated in the computer. The plan of care was discussed with the patient and her at the bedside and they are in agreement with the plan of care. BRISSA
[2018-10-30] MEDS ORDERED: CLINDAMYCIN 600 MG/NS 600 MG/50 ML IVPB IV SCH (15:15)
[2018-10-30] MEDS ORDERED: VANCOMYCIN IV PER PHARMACY MISC SCH (15:15)
[2018-10-30] MEDS ORDERED: ZOFRAN IV PRN (15:15)
[2018-10-30] MEDS: MORPHINE IV PRN ×2 (16:53→21:23)
[2018-10-30] MEDS ORDERED: VANCOMYCIN 2 GM in NS 500 ML IV ONE (18:00)
--- NOTE | 2018-10-30 19:21 | GENERAL SURGERY CONSULTATION ---
DATE: 10/30/2018 REQUESTING PHYSICIAN: Hospitalist Service. CONSULT CONCERNING: Faulty Proctor catheter and possible bacteremia. HISTORY OF PRESENT ILLNESS: A 52-year-old female dependent on TPN for nutrition, who came in with leaking around the distal end of her port. She has also had issues with intermittent fevers. She had previously had issues with bacteremia with this before. This catheter was placed in 2017. Again, because she has had multiple abdominal surgeries and now essentially has malabsorption of issues, she has been admitted. Blood cultures have been taken, and she has been started on vancomycin. I was asked to weigh an opinion on the port. PAST MEDICAL HISTORY: 1. Factor V Leiden. 2. Gastroesophageal reflux disease. 3. Arthritis. 4. Chronic pain. 5. CVA. 6. Anxiety with hypothyroidism. PAST SURGICAL HISTORY: 1. Appendectomy. 2. Cholecystectomy. 3. Tonsillectomy. 4. Hernia repair. 5. ACL repair. 6. Gastric bypass with revision. SOCIAL HISTORY: Lives with family. Denies alcohol, tobacco, or illicit drugs. FAMILY HISTORY: Reviewed with patient, noncontributory. ALLERGIES: None. HOME MEDICATIONS: She is on TPN. REVIEW OF SYSTEMS: A full 10-point review of systems obtained and negative except as specified in HPI. PHYSICAL EXAMINATION: Vital Signs: The patient is currently afebrile. Vital signs are stable. General: No acute distress. female, looks stated age. HEENT: Normocephalic, atraumatic. Pupils equal, round, reactive to light. Mucous membranes moist. Oropharynx benign. Neck: Supple. Trachea midline. Cardiovascular: Regular rate and rhythm. Lungs: Grossly clear. Chest Wall: With Proctor catheter coming out what looks like the right IJ. It is tunneled all the way down to her breast. There is a fracture in the distal end of the catheter. Abdomen: Soft, nontender, nondistended. Extremities: Moves all extremities. Neurologic: Grossly intact. Skin: No signs of jaundice. Vascular: All extremities perfused. LABORATORY: White blood cell count is 5, hematocrit 30, platelet count 365,000. Remainder of labs reviewed. IMAGING: Chest x-ray and abdominal film reviewed. No real pathology. ASSESSMENT AND PLAN: A 52-year-old female with fevers, possible bacteremia, and malfunctioning Proctor catheter. 1. Malfunctioning Proctor catheter. At this time, we will plan on removal. This is essentially a nonsalvageable Proctor catheter. We will plan on removing it in the morning. I did discuss with them the risks, benefits, and alternatives, the risks including anesthesia, risk of infection, risk of fracturing the catheter requiring Interventional Radiology to remove, and the possible complications. She voices understanding and wishes to proceed. We will try to do this in the morning. 2. Possible bacteremia. At this point, the patient has had several episodes of bacteremia that they tried to treat. There is a chance that this Proctor catheter is infected and the source of that, so would need to hold off on any placement of a new catheter until we can deem that she does not have any positive blood cultures. 3. Multiple medical comorbidities, currently being managed by the hospitalist service. cc: Rg Alfaro MD
[2018-10-30] MEDS: MAXIPIME 1 GM in NS 50 ML IV SCH (21:24)
[2018-10-31] MEDS: MORPHINE IV PRN ×2 (01:47→05:17)
[2018-10-31] MEDS ORDERED: TORADOL IV ONE (03:34)
[2018-10-31] MEDS: NS 1,000 ML IV SCH ×3 (04:03→22:07)
[2018-10-31] MEDS: VANCOMYCIN 1,500 MG in NS 250 ML IV SCH ×2 (05:17→17:56)
--- NOTE | 2018-10-31 05:55 | GENERAL SURGERY PROGRESS NOTE ---
DATE: 10/31/2018 SUBJECTIVE: The patient seems to be doing okay. OBJECTIVE: She did have a fever to 102.2 this morning. Otherwise, her vital signs have been stable. She is doing okay. ASSESSMENT AND PLAN: We got a consent signed. She is on antibiotics. We will plan on taking out the catheter today. cc: Rg Alfaro MD
[2018-10-31 07:34] LABS: BASO# 0.01 X1000 (0.0-0.2); BASO% 0.1 % (0.0-0.8); EOS# 0.16 X1000 (0.0-0.7); EOS% 2.3 % (0.0-10.0); HEMATOCRIT 31.6 % (37.0-47.0); HEMOGLOBIN 9.7 g/dL (12.0-16.0); LYMPH# 1.03 X1000 (1.2-3.4); LYMPH% 14.5 % (20.5-51.1); MCH 25.6 PG (27-31); MCHC 30.7 g/dL (33-37); MCV 83.4 FL (81-99); MONO# 0.31 X1000 (0.11-0.59); MONO% 4.4 % (1.7-9.3); MPV 11.4 FL (7.4-10.4); NEUT# 5.57 X1000 (1.4-6.5); NEUT% 78.7 % (42.2-75.2); PLT 337 X1000 (130-400); RBC 3.79 XMIL (4.2-5.4); RDW 15.5 % (11.5-14.5); WBC 7.08 X1000 (4.8-10.8)
[2018-10-31] MEDS ORDERED: TYLENOL PO PRN (07:58)
[2018-10-31] MEDS ORDERED: DIPRIVAN 1% ONE ×3 (08:13→08:27)
[2018-10-31] MEDS ORDERED: VERSED ONE (08:13)
[2018-10-31] MEDS ORDERED: XYLOCAINE-MPF 2% ONE (08:14)
[2018-10-31] MEDS: XYLOCAINE 1% ONE ×2 (08:30→10:53)
[2018-10-31 08:38] LABS: AGAP 10; BUN 12 mg/dL (8-22); CALCIUM 6.9 mg/dL (8.8-10.2); CHLORIDE 104 mmol/L (98-107); COSMO 272; CREATININE 0.6 mg/dL (0.5-0.9); ESTIMATED GFR > 60; GLUCOSE 107 mg/dL (70-104); SODIUM 136 mmol/L (136-145); TCO2 22 mmol/L (25-35)
--- NOTE | 2018-10-31 09:08 | OPERATIVE NOTE ---
PROCEDURE DATE: 10/31/2018 PREOPERATIVE DIAGNOSES: 1. Fever. 2. History of bacteremia. 3. Malfunctioning Proctor catheter. POSTOPERATIVE DIAGNOSES: 1. Fever. 2. History of bacteremia. 3. Malfunctioning Proctor catheter. PROCEDURE: Ultrasound guidance, removal of Proctor catheter. SURGEON: Dr. Rg Alfaro. LINE RUNNER: None. ANESTHESIA: IV MAC anesthesia with local administered by surgeon. FINDINGS: Ultrasound showed the cuff midway through the skin about a centimeter deep. COMPLICATIONS: None at the time of this dictation. ESTIMATED BLOOD LOSS: 5 mL. SPECIMEN REMOVED: Culture of the tip. BRIEF HISTORY: A 52-year-old female with fevers, history of bacteremia and a malfunctioning Proctor catheter, felt that she would benefit from having this removed and a central line holiday. The risks, benefits, and alternatives were discussed. All questions answered. DESCRIPTION OF PROCEDURE IN DETAIL: After informed consent was obtained, the patient was brought to the operative theater, transferred to the operative table, placed in the supine position. General endotracheal anesthesia was then performed without complication. A formal time-out was then performed confirming patient, date, procedure. All were in agreement. At that time, attention given to the right chest wall. We used local anesthetic to anesthetize the tract. We first started dissecting to free up the part of the catheter that came right out of the skin. We freed it up circumferentially. We then made a counter incision up in the neck to free up the distal end. We did this with a 15 blade, carried down and blunt dissection. We were able to free up and remove the distal end of the catheter near the superior vena cava by the heart. We pulled this out and held pressure to the neck. We then used the ultrasound to trace along the course of the Proctor catheter to find where the cuff was. It was about a centimeter deep about midway between these 2 incisions where we had the exit site at the skin and the site at the neck. We made an incision after using local anesthetic at this area, carried it all the way down using blunt dissection electrocautery to find the catheter itself and the cuff. We dissected the catheter free from the cuff, and removed the catheter out intact from the tunneling area and from the body completely. It did not look like there was any breaking of the catheter. We sent the tip off for cultures. We then closed the skin with 3-0 chromic. The patient tolerated the procedure well and was transferred back to recovery room in stable condition. cc: Rg Alfaro MD
[2018-10-31] MEDS: MAXIPIME 1 GM in NS 50 ML IV SCH ×2 (09:25→22:06)
[2018-10-31] MEDS ORDERED: OSCAL 500 + D PO SCH (09:29)
[2018-10-31] MEDS ORDERED: VITAMIN D PO SCH ×2 (09:29→13:30)
[2018-10-31] MEDS ORDERED: DIFLUCAN PO SCH (09:29)
[2018-10-31] MEDS ORDERED: COLACE PO PRN (09:29)
[2018-10-31] MEDS: WELLBUTRIN XL PO SCH (10:21)
[2018-10-31] MEDS: FOLIC ACID PO SCH (10:21)
[2018-10-31] MEDS: VITAMIN B-12 PO SCH (10:21)
[2018-10-31] MEDS: CARAFATE PO SCH ×2 (10:21→22:06)
[2018-10-31] MEDS: LEXAPRO PO SCH (10:21)
[2018-10-31] MEDS: ZINC SULFATE PO SCH (10:35)
[2018-10-31] MEDS: CORTEF PO SCH ×2 (10:35→22:06)
[2018-10-31] MEDS: DILAUDID IV PRN ×4 (10:35→22:06)
[2018-10-31] MEDS: PATIENT'S OWN MED PO SCH (10:43)
[2018-10-31] MEDS ORDERED: CALCIUM GLUCONATE 1 GM in NS 50 ML IV ONE (10:52)
[2018-10-31] MEDS: NEXIUM PO SCH ×2 (10:52→22:06)
[2018-10-31] MEDS: SLOW-MAG PO SCH ×2 (10:53→13:19)
[2018-10-31] MEDS: ULTRAM PO PRN (14:09)
--- NOTE | 2018-10-31 20:46 | PROGRESS NOTE ---
DATE: 10/31/2018 SUBJECTIVE: The patient complains of bone pain. She had her Proctor catheter removed this morning. OBJECTIVE: Vital signs: T-max 102.2 degrees, blood pressure 120/80, heart rate 72, respirations 18, O2 saturation 97% on room air. General: This is a chronically ill-appearing elderly female lying in bed in no acute distress.Heart: S1, S2 normal. Regular rate and rhythm. Lungs: Clear to auscultation bilaterally. No wheezing. No rales. No rhonchi. Abdomen: Positive bowel sounds. Soft, nontender, nondistended. Extremities: No edema, no cyanosis. Neurologic: The patient is alert and oriented x4. LABORATORY DATA: White blood cell count 7, hemoglobin 9.7, hematocrit 31, platelets 337,000. Sodium 136, potassium 4, chloride 104, CO2 is 22, BUN 12, creatinine 0.6, glucose 107, calcium 6.9. ASSESSMENT AND PLAN: 1. Fever. The patient had blood cultures drawn yesterday and her Proctor was removed today. We will follow up on the culture results. Continue with broad-spectrum antibiotics. 2. Adrenal insufficiency. Continue on hydrocortisone. 3. Vitamin D deficiency. Will start vitamin D replacement. 4. Osteoporosis. The patient is vitamin D-deficient. We will start the patient on vitamin D replacement and continue with calcium supplement. 5. Hypocalcemia. We will replace the patient's calcium. 6. Anxiety disorder. Continue on Xanax. 7. Hypothyroidism. Continue on Synthroid. 8. Factor V Leiden deficiency. Continue on Arixtra. cc: Mattie Medina MD [facility]
[2018-10-31] MEDS: SEROQUEL PO SCH (22:06)
[2018-10-31] MEDS: XANAX PO SCH (22:06)
[2018-11-01] MEDS: OSCAL 500 + D PO SCH ×3 (00:43→20:30)
[2018-11-01] MEDS: PATIENT'S OWN MED PO SCH ×2 (00:44→09:08)
[2018-11-01] MEDS: NS 1,000 ML IV SCH (06:50)
[2018-11-01] MEDS: VANCOMYCIN 1,500 MG in NS 250 ML IV SCH ×2 (06:51→18:28)
[2018-11-01 07:24] LABS: BASO# 0.01 X1000 (0.0-0.2); BASO% 0.3 % (0.0-0.8); EOS# 0.17 X1000 (0.0-0.7); EOS% 4.6 % (0.0-10.0); HEMATOCRIT 28.2 % (37.0-47.0); HEMOGLOBIN 8.4 g/dL (12.0-16.0); LYMPH# 1.17 X1000 (1.2-3.4); LYMPH% 31.8 % (20.5-51.1); MCH 25.4 PG (27-31); MCHC 29.8 g/dL (33-37); MCV 85.2 FL (81-99); MONO# 0.27 X1000 (0.11-0.59); MONO% 7.3 % (1.7-9.3); MPV 11.6 FL (7.4-10.4); NEUT# 2.06 X1000 (1.4-6.5); PLT 317 X1000 (130-400); RBC 3.31 XMIL (4.2-5.4); RDW 15.2 % (11.5-14.5); WBC 3.68 X1000 (4.8-10.8)
[2018-11-01 07:53] LABS: AGAP 8; ALBUMIN 2.8 g/dL (3.5-5.0); ALKALINE PHOSPHATASE 152 U/L (32-104); BUN 7 mg/dL (8-22); CALCIUM 8.4 mg/dL (8.8-10.2); CHLORIDE 109 mmol/L (98-107); COSMO 278; CREATININE 0.5 mg/dL (0.5-0.9); ESTIMATED GFR > 60; GLUCOSE 107 mg/dL (70-104); GOT 14 U/L (10-30); GPT 20 U/L (10-36); SODIUM 140 mmol/L (136-145); TCO2 23 mmol/L (25-35); TOTAL BILIRUBIN < 0.15 mg/dL (0.20-1.00); TOTAL PROTEIN 5.7 g/dL (6.3-8.3)
[2018-11-01 07:56] LABS: POTASSIUM 4.2 mmol/L (3.5-5.1)
[2018-11-01] MEDS: ARIXTRA SUBQ SCH (09:05)
[2018-11-01] MEDS: CORTEF PO SCH ×2 (09:05→20:29)
[2018-11-01] MEDS: VITAMIN B-12 PO SCH (09:05)
[2018-11-01] MEDS: WELLBUTRIN XL PO SCH (09:05)
[2018-11-01] MEDS: SLOW-MAG PO SCH (09:05)
[2018-11-01] MEDS: NEXIUM PO SCH ×2 (09:05→20:29)
[2018-11-01] MEDS: ZINC SULFATE PO SCH (09:06)
[2018-11-01] MEDS: DIFLUCAN PO SCH (09:06)
[2018-11-01] MEDS: LEXAPRO PO SCH (09:06)
[2018-11-01] MEDS: CARAFATE PO SCH ×2 (09:06→20:29)
[2018-11-01] MEDS: FOLIC ACID PO SCH (09:06)
[2018-11-01] MEDS: ULTRAM PO PRN ×2 (09:07→16:47)
[2018-11-01] MEDS: SYNTHROID PO SCH (09:09)
[2018-11-01] MEDS: MAXIPIME 1 GM in NS 50 ML IV SCH ×2 (09:15→20:28)
--- NOTE | 2018-11-01 09:40 | GENERAL SURGERY PROGRESS NOTE ---
DATE: 11/01/2018 SUBJECTIVE: Ms. Aziza Alexander is awake and alert. She has had no postop complications. Hemoglobin today 8.4 hematocrit 28. cc: Barney Araya MD
--- NOTE | 2018-11-01 12:43 | CONSULTATION ---
DATE OF CONSULTATION: 11/01/2018 CONCLUSION: The patient came in with fever and it was thought that it was coming from a faulty Proctor catheter, which has been removed. RECOMMENDATIONS: The patient has been started on a combination of vancomycin and cefepime. Thus far, the blood cultures are sterile and if they remain that way, then I think the antibiotics can be discontinued. I think it would be reasonable to continue with the antibiotics pending the final blood culture results and pending the culture of the catheter tip. DISCUSSION: The patient was having fever and chills at home. She also noticed there was a leak in her Proctor catheter. She was admitted to the hospital and has had her Proctor catheter removed by Dr. Alfaro. The patient is not having any more fever now. Laboratory studies thus far show a CBC with a white count of 3680, hemoglobin 8.4, and platelet count 317,000. Creatinine is 0.5. GFR is greater than 60. IgG and IgA are normal at 854 and 247 respectively. Alkaline phosphatase is 152. Urinalysis showed no white cells or bacteria. Blood cultures are negative. The culture of the catheter tip is still pending. Chest x-ray shows minimal amount of lingular atelectasis. The abdomen x-ray showed mild constipation. PAST MEDICAL HISTORY/REVIEW OF SYSTEMS: Eyes and ears: She does not have any trouble hearing or seeing. Neck: No pain with movement. Respiratory: No cough or shortness of breath. GI: No nausea, vomiting, or diarrhea. : No dysuria or flank pain. Cardiac: No chest pain or palpitations. Bones, joints, muscles: Patient has been having pain in her ankles, knees, hips and elbows. She recently had a bone marrow biopsy which showed that she had osteomalacia and osteoporosis. Endocrine: Patient has hypothyroidism, but not diabetes mellitus. Hematologic: The patient has Leiden deficiency. PRODUCTION UTILITY WORKER HISTORY: Patient has never been . PREVIOUS HOSPITALIZATIONS AND OPERATIONS: She has had gastric bypass twice. She has had esophagogastroduodenoscopy. She has had placement of a Proctor catheter and an admission for what was thought to be an infected catheter that was cleared up with antibiotics. MEDICAL DISEASES: Positive for Leiden deficiency, gastroesophageal reflux disease, hypothyroidism, immunoglobulin deficiency, osteomalacia, and osteoporosis. INFECTIOUS DISEASE HISTORY: Positive for pneumonia, urinary tract infection and an infected Proctor line catheter, which we were able to clear up with antibiotics. FAMILY HISTORY: Positive for diabetes mellitus, myocardial infarction, stroke, and cancer. SOCIAL HISTORY: [place] . She has a dog as a pet. 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 She does not smoke, drink alcohol or abuse drugs. MEDICATIONS TAKEN AT HOME: Xanax, Wellbutrin, Colace, Lexapro, Nexium, Pepcid, Diflucan, Arixtra, hydrocortisone, Synthroid, Seroquel, Carafate, TPN, vitamins and minerals. HEIGHT/WEIGHT: The patient is 5 feet 5 inches tall, weighs 146 pounds. PHYSICAL EXAMINATION: Vital Signs: Temperature is 98.3, pulse 72, respirations 20, blood pressure 110/69. General: This is a somewhat ill-appearing, middle-aged female. She is in no acute distress. Head, eyes, ears, nose, and throat: She can hear my spoken words and see near objects. There is no drainage coming from the nose or ears. She does not have any white patches on her tongue. Neck: No pain with movement of her head. Thorax: Patient has a dressing over the right side where the Proctor catheter was removed. The dressing is intact. Lungs: Clear to auscultation. Cardiovascular: Regular heart rate. Abdomen: Soft and nontender. Neurologic: Patient is awake. She can move her extremities. There is no tremor. Her sensation is intact to touch. Her memory as regarding her medical history is intact. Integument: No rash noted. Thank you for the consult. cc: Karlo Whitney MD
[2018-11-01] MEDS: DILAUDID IV PRN ×2 (12:47→18:24)
--- NOTE | 2018-11-01 19:54 | PROGRESS NOTE ---
DATE: 11/01/2018 SUBJECTIVE: The patient is resting comfortably in bed. She was afebrile last night. OBJECTIVE: Vital Signs: Temperature 97.9, blood pressure 113/71, heart rate 84, respirations 20. O2 sats 98% on room air. General: This is a elderly female lying in bed in no acute distress. Heart: S1, S2 normal. Regular rate and rhythm. Lungs: Clear to auscultation bilaterally. Abdomen: Positive bowel sounds. Soft, nontender, nondistended. Extremities: No edema, no cyanosis. Neurologic: The patient is alert and oriented x 3. LABS: White blood cell count 3.6, hemoglobin 8.4, hematocrit 28, platelets 317,000. Sodium 140, potassium 4.2, chloride 109, CO2 23, BUN 7, creatinine 0.5. ASSESSMENT AND PLAN: 1. Fever. The patient has been afebrile since last night. Will await the results of the blood cultures and the catheter culture. We will continue on broad-spectrum antibiotics. Dr. Whitney is following. 2. Adrenal insufficiency. Continue on hydrocortisone. 3. Vitamin D deficiency. Continue with vitamin D replacement. 4. Osteoporosis. Continue with calcium supplementation. 5. Anxiety disorder. Continue on Xanax. 6. Factor V Leiden deficiency. Continue on Arixtra. 7. Hypothyroidism. Continue on Synthroid. 8. Severe malabsorption. The patient is on TPN as outpatient. Will await the results of the patient's cultures to determine the timing of Port-A-Cath placement. 9. Status post Proctor catheter removal. We will await the cultures. 10. Chronic pain. Continue with tramadol as needed. 11. History of gastric ulcers. Continue on Nexium. cc: Mattie Medina MD [facility] CENTERJosias
[2018-11-01] MEDS: SEROQUEL PO SCH (20:29)
[2018-11-01] MEDS: XANAX PO SCH (20:29)
[2018-11-02] MEDS: DILAUDID IV PRN ×4 (04:03→16:24)
[2018-11-02] MEDS: SYNTHROID PO SCH ×2 (05:38→06:17)
[2018-11-02] MEDS: VANCOMYCIN 1,500 MG in NS 250 ML IV SCH ×2 (05:38→17:41)
[2018-11-02] MEDS: PATIENT'S OWN MED PO SCH ×2 (06:14→08:57)
[2018-11-02 07:09] LABS: BASO# 0.01 X1000 (0.0-0.2); BASO% 0.2 % (0.0-0.8); EOS# 0.24 X1000 (0.0-0.7); EOS% 5.3 % (0.0-10.0); HEMATOCRIT 27.8 % (37.0-47.0); HEMOGLOBIN 8.3 g/dL (12.0-16.0); LYMPH% 37.2 % (20.5-51.1); MCH 25.6 PG (27-31); MCHC 29.9 g/dL (33-37); MCV 85.8 FL (81-99); MONO# 0.25 X1000 (0.11-0.59); MONO% 5.5 % (1.7-9.3); MPV 11.5 FL (7.4-10.4); NEUT# 2.37 X1000 (1.4-6.5); NEUT% 51.8 % (42.2-75.2); PLT 303 X1000 (130-400); RBC 3.24 XMIL (4.2-5.4); RDW 15.2 % (11.5-14.5); WBC 4.57 X1000 (4.8-10.8)
--- NOTE | 2018-11-02 07:12 | EKG Report ---
Test Performed on : 10/31/2018 2:05:15 PM Test Reason : qt prolongation Blood Pressure : / mmHG Vent. Rate : 069 BPM Atrial Rate : 069 BPM P-R Int : 140 ms QRS Dur : 078 ms QT Int : 406 ms P-R-T Axes : 076 047 067 degrees QTc Int : 435 ms Normal sinus rhythm. Normal ECG When compared with ECG of 13-MAY-2018 07:18, No significant change was found Confirmed by Laci MONIQUE, Epifanio ([id number]) on 11/02/2018 8:52:30 AM
[2018-11-02 07:29] LABS: AGAP 8; ALB/GLOB RATIO 0.9; ALBUMIN 2.5 g/dL (3.5-5.0); ALKALINE PHOSPHATASE 145 U/L (32-104); BUN 9 mg/dL (8-22); CALCIUM 7.7 mg/dL (8.8-10.2); CHLORIDE 110 mmol/L (98-107); COSMO 281; CREATININE 0.5 mg/dL (0.5-0.9); ESTIMATED GFR > 60; GLUCOSE 148 mg/dL (70-104); GOT 23 U/L (10-30); GPT 20 U/L (10-36); POTASSIUM 3.8 mmol/L (3.5-5.1); SODIUM 140 mmol/L (136-145); TCO2 22 mmol/L (25-35); TOTAL BILIRUBIN < 0.15 mg/dL (0.20-1.00); TOTAL PROTEIN 5.3 g/dL (6.3-8.3)
--- NOTE | 2018-11-02 08:02 | GENERAL SURGERY PROGRESS NOTE ---
DATE: 11/02/2018 SUBJECTIVE: Patient doing okay. OBJECTIVE: Vital Signs: Patient is currently afebrile. Her vital signs stable. General: No acute distress. HEENT: Normocephalic, atraumatic. Pupils equal, round, reactive to light. Mucous membranes moist, oropharynx benign. Neck: Supple. Incisions from Proctor catheter site with dressings intact. Cardiovascular: Regular rate and rhythm. Lungs: Grossly clear. Abdomen: Soft, nontender, nondistended. Extremities: Moves all extremities. Neurologic: Grossly intact. Skin: No signs of jaundice. Vascular: All extremities perfused. LABORATORY: None this morning as of yet. Microbiology still pending from the culture. Blood shows no growth in 48 hours. ASSESSMENT AND PLAN: A 52-year-old female status post removal of malfunctioning possibly infected Proctor catheter. Status post removal of catheter at this time agree with current treatment. Would like to just make sure cultures were negative before we consider putting any kind of another catheter in and may wait a little while before we even do that. Otherwise, we will defer to the hospitalist and infectious disease. cc: Rg Alfaro MD
[2018-11-02] MEDS: CORTEF PO SCH ×2 (08:56→22:20)
[2018-11-02] MEDS: ARIXTRA SUBQ SCH (08:56)
[2018-11-02] MEDS: WELLBUTRIN XL PO SCH (08:56)
[2018-11-02] MEDS: VITAMIN B-12 PO SCH (08:56)
[2018-11-02] MEDS: NEXIUM PO SCH ×2 (08:56→22:20)
[2018-11-02] MEDS: OSCAL 500 + D PO SCH ×2 (08:56→22:20)
[2018-11-02] MEDS: SLOW-MAG PO SCH (08:56)
[2018-11-02] MEDS: ZINC SULFATE PO SCH (08:56)
[2018-11-02] MEDS: CARAFATE PO SCH ×2 (08:56→22:20)
[2018-11-02] MEDS: LEXAPRO PO SCH (08:56)
[2018-11-02] MEDS: FOLIC ACID PO SCH (08:56)
[2018-11-02] MEDS: DIFLUCAN PO SCH (08:57)
[2018-11-02] MEDS: MAXIPIME 1 GM in NS 50 ML IV SCH ×2 (09:03→09:15)
--- NOTE | 2018-11-02 14:25 | INFECTIOUS DISEASE PROGRESS NO ---
DATE: 11/02/2018 PRESENT ILLNESS: The patient had fever which is thought to be have been due to a faulty Proctor catheter. The Proctor catheter is growing gram-positive cocci. The blood cultures are sterile. Patient also has an immunoglobulin deficiency for which she receives IVIG. MEDICATIONS: The patient is on a combination of vancomycin and cefepime. PHYSICAL EXAMINATION: Vital Signs: Temperature is 98.6 degrees, pulse 77, respirations 20, blood pressure 126/72. General: This is a chronically ill-appearing middle-aged female. She is in no acute distress. Head/eyes/ears/nose/throat: She can hear my spoken words and see near objects. There is no drainage from the nose or ears. Neck: No meningismus. Thorax: Patient's site where her Proctor was removed is not erythematous or purulent. Lungs: Clear to auscultation. Cardiovascular: Heart rate is regular. Abdomen: Soft and not tender. Neurologic: Patient is alert. She can move her extremities. There is no tremor. LAB AND X-RAY: There is no new radiographic study. CBC shows a white count of 4570, hemoglobin 8.3, and platelet count 303,000. Creatinine is 0.5. GFR is greater than 60. Blood cultures are sterile. The catheter tip is growing gram-positive cocci. ASSESSMENT AND PLAN: The patient had an infected faulty Proctor catheter. The plan is to put in a PICC through which the patient can take her TPN each night and also I will continue vancomycin to treat the gram-positive cocci that were on the faulty Proctor catheter for a period of 2 weeks. After that then Dr. Alfaro will put in a Proctor catheter. I have put in a consult to get a PICC placed and also for a pro time. I have also put in a consult for Social Service to set up for the patient's IV vancomycin and TPN through the company she uses all the time, namely [employer] out of [place]. I have also reconsulted Dr. Alfaro to put in most likely will be the Proctor line catheter so that the patient can have permanent access to continue her nightly TPN. Also the patient's Proctor catheter will be used for IVIG infusions because the patient has an immunoglobulin deficiency. COMORBIDITIES: She has had gastric bypass twice and does not absorbs food and she needs permanent IV access so that she can have her TPN. She also has Leiden deficiency, gastroesophageal reflux disease, and an immunoglobulin deficiency as well. cc: Karlo Whitney MD
[2018-11-02 14:37] LABS: INR 1.13; PROTIME 15.4 Seconds (11.0-16.0)
[2018-11-02] MEDS: NS 1,000 ML IV SCH (14:54)
[2018-11-02] MEDS: ULTRAM PO PRN (15:04)
--- NOTE | 2018-11-02 17:50 | PROGRESS NOTE ---
DATE: 11/02/2018 SUBJECTIVE: The patient has no major complaints. She seems to be doing okay. OBJECTIVE: Vital Signs: Blood pressure is 128/71, heart rate is 74, respiratory is 16, temperature is 98.4 degrees. Her catheter tip was gram-positive cocci, but her blood cultures are negative, but she was symptomatic as she had a temperature of 102.2 degrees, and catheter has been removed. Lungs: Clear. Cardiovascular: Regular rate and rhythm. LABORATORY DATA: White count 4, hemoglobin and hematocrit 8 and 27, platelets 303,000, overall improved. PROBLEM LIST: 1. Gram-positive cocci catheter infection. Dr. Whitney is planning to do IV antibiotics for 2 weeks I guess pending sensitivities on the organism. 2. Adrenal insufficiency on hydrocortisone. 3. Factor V Leiden is stable on Arixtra. 4. Severe malabsorption. She is on chronic total parenteral nutrition. DISPOSITION: The patient is currently stable awaiting final recommendations from ID before we can plan to discharge. cc: Alex Cee MD
[2018-11-02] MEDS: XANAX PO SCH (22:19)
[2018-11-02] MEDS: SEROQUEL PO SCH (22:19)
[2018-11-03] MEDS: NS 1,000 ML IV SCH (02:40)
[2018-11-03] MEDS: PATIENT'S OWN MED PO SCH ×2 (02:40→08:38)
[2018-11-03] MEDS: SYNTHROID PO SCH (06:09)
[2018-11-03] MEDS: VANCOMYCIN 1,500 MG in NS 250 ML IV SCH (06:09)
--- NOTE | 2018-11-03 06:11 | GENERAL SURGERY PROGRESS NOTE ---
DATE: 11/03/[address] Karlo Whitney. His plan is to place a PICC line and do vancomycin IV for 2 weeks. At that point she can follow up with either myself or Dr. Lisa in the office for the evaluation of a new Proctor catheter. cc: Rg Alfaro MD
[2018-11-03 07:15] LABS: BASO# 0.01 X1000 (0.0-0.2); BASO% 0.2 % (0.0-0.8); EOS# 0.16 X1000 (0.0-0.7); HEMATOCRIT 28.8 % (37.0-47.0); HEMOGLOBIN 8.6 g/dL (12.0-16.0); LYMPH# 1.62 X1000 (1.2-3.4); LYMPH% 30.2 % (20.5-51.1); MCH 25.1 PG (27-31); MCHC 29.9 g/dL (33-37); MONO# 0.27 X1000 (0.11-0.59); MPV 11.2 FL (7.4-10.4); NEUT% 61.6 % (42.2-75.2); PLT 356 X1000 (130-400); RBC 3.43 XMIL (4.2-5.4); RDW 15.2 % (11.5-14.5); WBC 5.36 X1000 (4.8-10.8)
[2018-11-03] MEDS: DILAUDID IV PRN ×4 (07:29→16:06)
[2018-11-03 07:37] LABS: AGAP 9; BUN 11 mg/dL (8-22); CALCIUM 7.8 mg/dL (8.8-10.2); CHLORIDE 107 mmol/L (98-107); COSMO 279; CREATININE 0.4 mg/dL (0.5-0.9); ESTIMATED GFR > 60; GLUCOSE 94 mg/dL (70-104); POTASSIUM 4.1 mmol/L (3.5-5.1); SODIUM 140 mmol/L (136-145); TCO2 24 mmol/L (25-35)
[2018-11-03] MEDS: SLOW-MAG PO SCH (08:37)
[2018-11-03] MEDS: WELLBUTRIN XL PO SCH (08:38)
[2018-11-03] MEDS: VITAMIN B-12 PO SCH (08:38)
[2018-11-03] MEDS: FOLIC ACID PO SCH (08:38)
[2018-11-03] MEDS: OSCAL 500 + D PO SCH (08:38)
[2018-11-03] MEDS: CORTEF PO SCH (08:38)
[2018-11-03] MEDS: CARAFATE PO SCH (08:38)
[2018-11-03] MEDS: NEXIUM PO SCH (08:38)
[2018-11-03] MEDS: LEXAPRO PO SCH (08:38)
[2018-11-03] MEDS: ZINC SULFATE PO SCH (08:38)
[2018-11-03] MEDS: DIFLUCAN PO SCH (08:38)
[2018-11-03] MEDS ORDERED: NS 250 ML ONE (09:40)
[2018-11-03] MEDS: ARIXTRA SUBQ SCH (10:20)
[2018-11-03 11:13] VITALS: BP 113/63
== END 2018-11-03 17:24 | disposition home or self-care (01) | DRG 315 ==
LOC: ED 08:31 → EDIPHOLD 08:32 → SUATTDRO 08:32 → 4N 16:25
PROVIDERS: ATTEND Internal Medicine
CPT/HCPCS: 36569; 71020; 71046; 74000; 74018; 80048; 80053; 80202; 81001; 82306; 82784; 83735; 85025; 85610; 87040; 87070; 87077; 87186; 93005; 93010; 96365; 96375; 99285; A9270; J0610; J0692; J1170; J1652; J1885; J2250; J2270; J2405; J3370; J7030; J7040; J7050; S0077